=== PATIENT | male | born 1960 | race Caucasian/White ===

== ENCOUNTER 2017-07-16 12:36 | Inpatient (IN) | payer BC ==
[~2017-07-16] VITALS: Ht 175.3 cm; Wt 85.6 kg
[2017-07-16] VITALS (14 sets, daily range): BP systolic 82–104; BP diastolic 47–64
[2017-07-16] MEDS ORDERED: NS IV 1000 ML 1,000 ML IV SCH ×2 (13:46→14:00)
[2017-07-16] MEDS ORDERED: NS IV 1000 ML 1,000 ML IV PRN (13:46)
[2017-07-16] MEDS ORDERED: HYDR-3816 PO (13:48)
[2017-07-16] MEDS ORDERED: METF500T4 PO (13:48)
[2017-07-16] MEDS ORDERED: DONE5TAB30 PO (13:48)
[2017-07-16] MEDS ORDERED: GLIM4TAB PO (13:48)
[2017-07-16] MEDS ORDERED: CELE-63 PO (13:48)
[2017-07-16] MEDS ORDERED: NS IV 1000 ML 1,000 ML ONE (13:49)
[2017-07-16] MEDS ORDERED: ACETAMINOPHEN 500 MG TAB (TYLENOL) PO NR (13:51)
--- NOTE | 2017-07-16 14:01 | Diagnostic Imaging Report ---
INDICATION: Fever and shortness of air. Time of exam 1:52 PM No prior studies are available for comparison. There is marked diffuse airspace infiltrate throughout the left lung, suggestive of pneumonia. The right lung is clear. Right upper extremity PICC line appears to have the tip overlying the SVC. No effusion or pneumothorax is seen. IMPRESSION: Extensive left-sided infiltrate, suggestive of pneumonia. Dictated by: Dictated on workstation # [id number]
--- NOTE | 2017-07-16 14:19 | Physical Therapy Evaluation ---
PT Evaluation-General Medical Diagnosis Admission Date Jul 16, 2017 at 13:30 Medical Diagnosis: pneumonia/sepsis Onset Date: Jul 05, 2017 Therapy Diagnosis Therapy Diagnosis: impaired mobility, strength, endurance Referral Physician: Mitchel Reason for Referral: Evaluation/Treatment Medical History Pertinent Medical History: DM, HTN Additional Medical History peripheral neuropathy Social History Home: Single Level Current Living Status: Spouse Entry Into Home: Stairs With Railing PT Steps Into Home: 3 Patient states he lives with his and 2 daughters, steps have one handrail. Prior/Core FIM Prior Level of Function Functional [place] Measure 0=Not Assessed/NA 4=Minimal Assistance 1=Total Assistance 5=Supervision or Setup 2=Maximal Assistance 6=Modified [place] 3=Moderate Assistance 7=Complete [place] Bed Mobility: 7 Transfers (B,C,W/C) (FIM): 7 Gait: 7 PT Evaluation-Current Subjective Patient in van at entrance pre tx, will be transferred to wheelchair and taken to rehab. Patient has no complaints of pain. Pt/Family Goals "im pretty weak and I need to get stronger" Objective Patient Orientation: Person ROM/Strength ROM Lower Extremities WNL Strenght Lower Extremities left lower extremity (hip flexion 3/5, knee flexion 4/5, knee extension 4-/5, dorsiflexion 4/5), right lower extremity (hip flexion 3/5, knee flexion 4/5, knee extension 4-/5, dorsiflexion 4/5) Neuromuscular (Tone, Coordination, Reflexes) NT Sensory Vision: Wears Glasses Hearing: Impaired Sensation Right Lower Extremit: Intact Sensation Left Lower Extremity: Intact Sensation Lower Extremities Patient states he has occasional numbness and tingling in his feet, not at this moment Transfers Functional [place] Measure 0=Not Assessed/NA 4=Minimal Assistance 1=Total Assistance 5=Supervision or Setup 2=Maximal Assistance 6=Modified [place] 3=Moderate Assistance 7=Complete IndependenceIRFPAI Quality Coding Scale 6 Independent with activity with or without an assistive device 5 Patient requires set up or clean up by helper. Patient completes activity by themselves 4 Supervision or touching assist (CGA). Ferney provide cues , steadying assist 3 The helper provides less than half the effort to complete the activity 2 The helper provides more than half the effort to complete the activity 1 Dependent. The helper does all the effort to complete an activity 7 Patient refused to complete or attempt activity 9 The patient did not perform the activity before the current illness or injury 88 Not attempted due to Medical conditions or safety concerns Transfers (B, C, W/C) (FIM): 4 Scootin Rollin Roll Left to Right (QC): 4 Supine to/from Sit: 5 Sit to/from Stand: 3 bed t/f WC(FIM only if WC use): 4 Sit to Lying (QC): 4 Lying to Sitting/Side of Bed(Q: 4 Sit to Stand (QC): 4 Chair/Rez-hw-Defol Xfer(QC): 4 Car Transfer (QC): 3 Patient performs bed mobility with SBA, sit to stand with min assist from low surfaces, transfers with CGA, and car transfer with Ifeanyi Gait Does the Patient Walk?: Yes Mode of Locomotion: Walk Anticipated Mode of Locomotion: Walk Gait (FIM): 1 Walk 10 feet (QC): 4 Walk 50 ft with 2 Turns(QC): 88 Walk 150 ft (QC): 88 Walking 10ft/uneven surface-QC: 88 Distance: 10' Gait Level of Assist: 4 Gait Persons Needed: 1 Gait Assistive Device: FWW Comments/Gait Description Patient can ambulate 10' with a rolling walker with CGA, he had to stop due to fatigue and was a little SOB. SOB resolved after a short sitting rest. Wheelchair Training Wheelchair (FIM): 1 Distance: 50' Wheelchair Level of Assist: 2 Wheel 50 ft with 2 turns (QC): 2 Wheel 150 ft (QC): 88 Type of Wheelchair: Manual Patient is dependent for wheelchair mobility due to poor endurance in arms. Stairs If not tested on admit;explain not attempted due to safety reasons, patient has weakness in both lower extremities and very poor endurance Balance Sitting Static: Normal Sitting Dynamic: Normal Standing Static: Fair Standing Dynamic: Fair Assessment/Needs Patient has poor endurance and general mobility. He gets SOB with activity. Radiology came to take a chest xray during treatment. The xray appeared to show a lot of consolidation in one of the lungs. He also had an elevated temp. Nursing states that he is now on hold and to stop therapies. Rehab Potential: Fair PT Short Term Goals Short Term Goals Time Frame: Jul 23, 2017 Transfers (B,C,W/C) (FIM): 4 (CGA) Gait (FIM): 2 Gait Distance Comment: 50' Gait Level of Assist: 4 Gait Assistive Device: FWW PT Group Home Goals Environmental Conservation Officer Goals PT Group Home Goals Time Frame: Aug 06, 2017 Transfers (B,C,W/C) (FIM): 5 Sit to Lying (QC): 4 Lying-Sitting on Side/Bed(QC): 4 Sit to Stand (QC): 4 Rollin Roll Left to Right (QC): 4 Chair/Heb-yp-Lgycx Xfer(QC): 4 Car Transfer (QC): 4 Gait (FIM): 5 Distance: 150' Walk 10 feet (QC): 4 Walk 10ft-Uneven Surface(QC): 4 Walk 50ft with 2 Turns (QC): 4 Walk 150 ft (QC): 4 Gait Level of Assist: 5 Gait Assistive Device: FWW Stairs (FIM): 2 # of Steps: 4 1 Step (curb) (QC): 4 4 Steps (QC): 4 12 Steps (QC): 4 Stairs Level Of Assist: 5 Picking up an Object (QC): 4 PT Plan Problem List Problem List: Activity Tolerance, Functional Strength, Safety, Balance, Gait, Transfer, Bed Mobility, ROM Treatment/Plan Treatment Plan: Continue Plan of Care Treatment Plan: Bed Mobility, Concurrent Therapy, Education, Functional Activity Dina, Functional Strength, Group Therapy, Gait, Safety, Therapeutic Exercise, Transfers Treatment Duration: Aug 06, 2017 Frequency: At least 5 of 7 days/Wk (IRF) Estimated Hrs Per Day: 1.5 hours per day Patient and/or Family Agrees t: Yes Safety Risks/Education Patient Education: Gait Training, Transfer Techniques, Correct Positioning, W/ C Management, Safety Issues Teaching Recipient: Patient Teaching Methods: Demonstration, Discussion Response to Teaching: Reinforcement Needed Discharge Recommendations Plan Patient will perform bed mobility and transfer training, balance and endurance training, functional strengthening, stair training, gait training, and education , to improve functional mobility and independence at home. Therapy D/C Recommendations: Home w/ Family Support Time/GCodes Time In: 1320 Time Out: 1350 Total Billed Treatment Time: 30 Total Billed Treatment 1 visit LEYDI 30' FERNANDEZ MIR PT Jul 16, 2017 14:19
[2017-07-16 14:32] LABS: BASOPHILS % (AUTO) 0 % (0-10); EOSINOPHILS % (AUTO) 0 % (0-10); HEMATOCRIT 29 % (40-54); HEMOGLOBIN 9.4 G/DL (13.3-17.7); LYMPHOCYTES # (AUTO) 4.4 X 10^3 (1.0-4.0); LYMPHOCYTES % (AUTO) 33 % (12-44); MEAN CORPUSCULAR HEMOGLOBIN 30 PG (25-34); MEAN CORPUSCULAR HGB CONC 33 G/DL (32-36); MEAN CORPUSCULAR VOLUME 91 FL (80-99); MEAN PLATELET VOLUME 10.4 FL (7.4-10.4); MONOCYTES % (AUTO) 7 % (0-12); NEUTROPHILS # (AUTO) 8.1 X 10^3 (1.8-7.8); NEUTROPHILS % (AUTO) 60 % (42-75); PLATELET COUNT 428 10^3/uL (130-400); RED BLOOD COUNT 3.16 10^6/uL (4.35-5.85); RED CELL DISTRIBUTION WIDTH 13.1 % (10.0-14.5); WHITE BLOOD COUNT 13.5 10^3/uL (4.3-11.0)
[2017-07-16] MEDS ORDERED: VIAGRA PO (14:34)
[2017-07-16] MEDS ORDERED: CALC1TAB29 PO (14:34)
[2017-07-16] MEDS ORDERED: MULT-1061 PO (14:34)
[2017-07-16] MEDS ORDERED: GUAI600T43 PO (14:34)
[2017-07-16] MEDS ORDERED: PSEU-137 PO (14:34)
[2017-07-16] MEDS ORDERED: POTA99TA21 PO (14:34)
[2017-07-16] MEDS ORDERED: VIT1CAPS9 PO (14:34)
[2017-07-16] MEDS ORDERED: LISI40TA PO (14:34)
[2017-07-16] MEDS ORDERED: CANA300T PO (14:34)
[2017-07-16] MEDS ORDERED: EMPA25TA PO (14:34)
[2017-07-16] MEDS ORDERED: ASPI-983 PO (14:34)
[2017-07-16] MEDS ORDERED: CETI10TA20 PO (14:34)
[2017-07-16] MEDS ORDERED: PIPERACILLIN SODIUM/TAZOBACTAM 4.5 GM in NS (IVPB) 100 ML IV NR (14:36)
[2017-07-16 14:48] LABS: INR 1.1 (0.8-1.4); PROTHROMBIN TIME PATIENT 14.6 SEC (12.2-14.7)
[2017-07-16 14:54] LABS: ALANINE AMINOTRANSFERASE 15 U/L (0-55); ALBUMIN 2.2 GM/DL (3.2-4.5); ALKALINE PHOSPHATASE 51 U/L (40-136); BILIRUBIN,TOTAL 0.4 MG/DL (0.1-1.0); BUN/CREATININE RATIO 28; CALCIUM 8.5 MG/DL (8.5-10.1); CARBON DIOXIDE 29 MMOL/L (21-32); CHLORIDE 98 MMOL/L (98-107); CREATININE SERUM 0.83 MG/DL (0.60-1.30); GFR ESTIMATED > 60; GLUCOSE 144 MG/DL (70-105); POTASSIUM 4.1 MMOL/L (3.6-5.0); SODIUM 133 MMOL/L (135-145); TOTAL PROTEIN 6.7 GM/DL (6.4-8.2)
--- NOTE | 2017-07-16 14:58 | ST Dysphagia Evaluation ---
Speech Evaluation-General Medical Diagnosis Pneumonia/Sepsis Onset Date: Jul 05, 2017 Therapy Diagnosis Therapy Diagnosis: Oropharyngeal Swallow WNL Referral Referring Physician: Dr. Christoph Grullon Reason for Referral: Evaluation/Treatment Clinical Bedside Swallowing Evaluation Medical History Pertinent Medical History: DM, HTN Current History The patient was recently admitted to [facility] following a diagnosis of pneumonia. The patient was intubated for an unknown length at an outside facility. Following extubation, the patient completed a video swallow evaluation on 07/13/17 and was initiated on a full liquid diet. Reviewed History: Yes Social History Current Living Status: Spouse Speech PLF/Current-Dysphagia Prior Level of Function The patient and patient's denied any signs/symptoms of aspiration with any consistency the patient currently consumes. Prior to intubation, the patient consumed a regular diet with thin liquids at home. Subjective The patient was sitting upright in bed upon entrance. The patient greeted the clinician and was agreeable to participation in the dysphagia evaluation. The patient's was at beside. The patient's stated the patient "did an X- ray that showed he could have liquids and everything was fine. We asked if he could have a different diet but they told us the people at rehab would want to complete their own evaluation." The patient denied any swallowing difficulties with the full liquid diet. Per patient, "I cough sometimes because I have pneumonia but not because of my food." Cognitive Status Patient Orientation: Person, Place, Time, Situation, Normal For Age Oral Motor Skills Dentition: Natural Current Food Consistancy: Full Liquids Ability to Follow Directions: Good Oral Expression Ability: No Impairment Voice Voice Phonatory-Based Quality: Weak Voice Pitch: Normal Voice Loudness: Mildly Soft/Quiet Face Facial Symmetry: Symmetrical Oral-Facial Assessment Oral-Facial Dentition: Normal Labial Seal Description: Normal Smile: Normal Lingual Protrusion: Normal Lingual ROM: Normal Lingual Strength: Normal Pharynx Velopharyngeal Move.: Normal Volitional Dry Swallow: Yes Voluntary Cough: Yes Dysphagia Evaluation Consistencies Presented: Regular, Thin Liquid, Pureed - No oral impairments were noted throughout the swallowing evaluation with any consistency tested. The patient demonstrated increased mastication time with solids, however, spontaneously provided himself a liquid wash to clear. - No pharyngeal impairments were noted throughout the evaluation. - No signs/symptoms of aspiration or laryngeal penetration were noted with any consistency tested. The patient's vocal quality remained clear. Dietary Recommendations: Regular Liquid Recommendations: Thin Swallowing Precautions: Alternate Liquids/Solids, Small Bites and Sips, Sitting 90 Degrees 30 Post Intake Dysphagia Evaluation Summary The patient demonstrated an oropharyngeal swallow function grossly within normal limits. Speech-Plan Treatment Plan Speech Therapy Treatment Plan: Discontinue ST Evaluation, only. Cognition assessment to follow. Frequency: Modified Program (IRF) Estimated Hrs Per Day: Other Rehab Potential: Fair Safety Risks/Education Teaching Recipient: Patient, Significant Other Teaching Methods: Discussion Response to Teaching: Verbalize Understanding Education Topics Provided: Results, Recommendations, Plan of Care, Swallowing Strategies Time Speech Therapy Time In: 14:30 Speech Therapy Time Out: 14:50 Total Billed Time: 20 Billed Treatment Time 1, MCKENZIE RICK Jul 16, 2017 14:58
[2017-07-16] MEDS ORDERED: NS IV 1000 ML 1,500 ML IV SCH (15:30)
[2017-07-16] MEDS ORDERED: INFLUENZA TRIvalent 2017-2018 0.5 ML/45 MCG SYR IM ONE (15:45)
--- NOTE | 2017-07-16 15:50 | Occ Therapy Progress Note ---
Therapy Progress Note Pt admitted to ARU this pm. Pt is currently on hold for therapy secondary to medical status. Will attempt to complete evaluation when medically appropriate. SUZANNE GONZALEZ OT Jul 16, 2017 15:50
--- NOTE | 2017-07-16 16:09 | Consultation-Hospitalist ---
HPI History of Present Illness: HPI/Chief Complaint Pt is a 56yoCM with a recent admission to [facility] for acute respiratory failure due to MSSA pneumonia. He was transferred here for inpatient rehab following his long course there. Upon arrival initial assessment was done and his vitals revealed temperature of 100.8, tachycardia of 140, with BP of 95/59. His nurse immediately consulted me for evaluation concerning sepsis. He reports that he is feeling okay but is short of breath when walking and feels weak. He did feel his heart was racing but denied any chest pain. He has had a cough since this all started. Review his documentation from revealed he was intubated and then was able to be extubated and as soon as antibiotics were narrowed he worsened and necessitated reintubation. He told me they were never able to figure out why he worsened. at bedside said they had lots of problems with his blood pressure at [facility] as well. She states he was on blood pressure medicine prior to this illness but only took it around 3x/week to keep his BP within normal limits. Source: patient, family Exam Limitations: no limitations Date Seen 07/16/17 Attending Physician Christoph Grullon MD PCP Ovi Mcrae MD Referring Physician Date of Admission Jul 16, 2017 at 1:30 pm Home Medications & Allergies Home Medications Reviewed patient Home Medication Reconciliation performed by pharmacy medication reconciliations oncology technician and/or nursing. Patients Allergies have been reviewed. Allergies Allergies Coded Allergies No Known Allergies (Verified Allergy, Unknown, 07/16/17) Past Ijgbkqw-Exlsql-Rzedwt Hx Past Med/Social Hx: Reviewed Nursing Past Med/Soc Hx, Reviewed and Corrections made Patient Social History Marrital Status: Smoking Status: Former Smoker (quit in 1995) Type Used: Cigarettes Recent Foreign Travel: No Contact w/other who traveled: No Past Medical History Respiratory: COPD Cardiac: Hypertension Neurological: Dementia Endocrine: Diabetes, Non-Insulin dep Family History Reviewed Nursing Family Hx No Pertinent Family Hx Review of Systems Constitutional: No chills, No fever EENTM: No blurred vision, No double vision, No nose congestion, No throat pain Respiratory: see HPI, dyspnea on exertion Cardiovascular: see HPI, No chest pain, No edema, palpitations Gastrointestinal: No abdominal pain, No constipation, No diarrhea, No nausea, No vomiting Genitourinary: No dysuria, No frequency Musculoskeletal: No joint pain, No muscle pain, muscle weakness Skin: No lesions, No rash Psychiatric/Neurological: Denies Emotional Problems, Denies Headache, Denies Numbness, Denies Tingling All Other Systems Reviewed Negative Unless Noted: Yes (Negative excepted noted.) Physical Exam Physical Exam Vital Signs Vital Signs - First Documented 07/16/17 07/16/17 13:30 15:03 Temp 100.8 Pulse 140 Resp 20 B/P (MAP) 95/59 Pulse Ox 90 O2 Delivery Room Air O2 Flow Rate 2.00 Capillary Refill : General Appearance: No Apparent Distress, WD/WN HEENT: PERRL/EOMI, Moist Mucous Membranes, No Scleral Icterus (L), No Scleral Icterus (R) Neck: Normal Inspection, Supple, No JVD, No Thyromegaly Respiratory: No Respiratory Distress, Crackles, Decreased Breath Sounds (left) Cardiovascular: Regular Rate, Rhythm, No Murmur Gastrointestinal: Normal Bowel Sounds, Non Tender, Soft Extremity: Normal Capillary Refill, No Calf Tenderness, No Pedal Edema Neurologic/Psychiatric: Alert, Oriented x3, No Motor/Sensory Deficits, Normal Mood/Affect Skin: Normal Color, Warm/Dry Results Results/Procedures Labs Laboratory Tests 07/16/17 14:02 Patient resulted labs reviewed. Imaging: Reviewed Imaging Films Imaging Date of Exam: 07/16/17 CHEST 1 VIEW, AP/PA ONLY INDICATION: Fever and shortness of air. Time of exam 1:52 PM No prior studies are available for comparison. There is marked diffuse airspace infiltrate throughout the left lung, suggestive of pneumonia. The right lung is clear. Right upper extremity PICC line appears to have the tip overlying the SVC. No effusion or pneumothorax is seen. IMPRESSION: Extensive left-sided infiltrate, suggestive of pneumonia. Assessment/Plan Assessment and Plan Assess & Plan/Chief Complaint Severe Sepsis Critical Care Critical Care: Critically Ill Patient Diagnosis/Problems Diagnosis/Problems (1) Severe sepsis Status: Acute Assessment & Plan: Febrile and tachycardiac on arrival Septic workup initiated WBC 13.5 Lactic acid normal CXR shows extensive left sided pneumonia Bolused 1L with improvement in heart rate to 120s but BP went to 82/54 Met severe sepsis criteria at that time and 30cc/kg bolus started Blood cultures obtained Zosyn and Vanc ordered- Aaliyah hung at 1600 Discussed with primary- Dr Grullon and recommended converting to acute side and placing in ICU for hypotension and pontential need for pressors Bed available at this facility so social work administrator contact [facility] regarding transfer back I spoke with Dr Blevins who accepts patient in transfer If blood pressures do not improve may need central line for vasopressor therapy (2) Pneumonia Assessment & Plan: Reviewed notes from [facility]- had ~10day hospital stay requiring intubation for respiratory support secondary to MSSA pneumonia and severe sepsis MSSA in sputum at OSH also was CMV + on BAL Placed on droplet precaution Continue abx as above Qualifiers: Pneumonia type: due to methicillin-sensitive Staphylococcus aureus (MSSA) Laterality: left Lung location: unspecified part of lung Qualified Codes: J15.211 - Pneumonia due to methicillin susceptible Staphylococcus aureus (3) HTN (hypertension) Status: Chronic Assessment & Plan: Continue medications prior to arrival Review of notes shows BP at in the 130s though this was a few days ago Spoke with Dr Blevins and BP 110/68 just before discharge Qualifiers: Hypertension type: essential hypertension Qualified Codes: I10 - Essential (primary) hypertension (4) Non-insulin dependent type 2 diabetes mellitus Assessment & Plan: Normally on oral agents but on SSI at BS within goal currently Clinical Quality Measures DVT/VTE Risk/Contraindication: Risk Factor Score Per Nursin RFS Level Per Nursing on Admit: 4+=Very High Sepsis: Within 3hrs of presentation: Admin fluids, Admin ABX, Blood cultures prior to ABX's, Lactate level Copy Copies To 1: OVI MCRAE MD, KATELYN M MD Jul 16, 2017 4:09 pm
[2017-07-16] MEDS ORDERED: VANCOMYCIN INJECTION 1,750 MG in NS IV 500 ML 500 ML IV NR (17:00)
--- NOTE | 2017-07-16 19:01 | HISTORY AND PHYSICAL ---
DATE OF SERVICE: 07/16/2017 ADMISSION HISTORY AND PHYSICAL CHIEF COMPLAINT: Weakness. HISTORY OF PRESENT ILLNESS: The patient is a 56-year-old male who developed bilateral pneumonia with associated sepsis, which requiring transfer from [facility] to [facility] for treatment with IV nafcillin, intubation and ventilation support. The patient was extubated and referred to inpatient rehabilitation for ongoing therapies and care prior to a discharge home. nurse practitioner contacted this physician on 07/15 saying all was good for transfer. 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 The patient currently requires assistance for his ADLs and mobility skills. Cognitively, he is intact. He is min assist for ambulation with a walker for short distances. He is on O2 by nasal cannula. He is mod assist for transfers. He was transferred down here by his in a private car. PAST MEDICAL HISTORY: , bhc-rqyzoay-svlrqqrve diabetes mellitus, COPD. He has remote history of tobaccoism. PAST SURGICAL HISTORY: Noncontributory. ALLERGIES: No known medication allergies. FAMILY HISTORY: Noncontributory. SOCIAL HISTORY: . Quit tobacco in 1995, was independent, working as per above. REVIEW OF SYSTEMS: A 10-point review of systems is significant for fever, rapid heart rate, low blood pressure, shortness of breath. MEDICATIONS: Lovenox 40 mg subcu daily, NovoLog insulin sliding scale and Humulin N 20 units subcu b.i.d., nafcillin 2 g IV piggyback q. 4 hours for 20 days, Ditropan 5 mg p.o. daily, MiraLax 17 g p.o. b.i.d., Risperdal 1 mg rapid dissolve tablet at bedtime, ASA 81 mg p.o. daily, calcium carbonate with vitamin D3 one tablet p.o. daily, Zyrtec 10 mg p.o. daily, Aricept 5 mg p.o. at bedtime, multivitamins with minerals one tablet p.o. daily, Ocuvite one tablet p.o. daily. PHYSICAL EXAMINATION: GENERAL: Significant for a male, appropriate, lying in bed, in no acute distress. VITAL SIGNS: Blood pressure , pulse 114, temperature 100.8. HEENT: Vision, speech and hearing are grossly intact. No oral lesion is noted. NECK: Supple without mass. HEART: Rapid rhythm. LUNGS: Decreased breath sounds at left base. ABDOMEN: Soft, nontender. Bowel sounds present. EXTREMITIES: No leg edema. No calf tenderness. MUSCULOSKELETAL: The patient has functional active range of motion in all four extremities. NEUROLOGIC: Cognition appears functional. Swallow tested by speech therapy at bedside today is functional. His hearing is mildly impaired. He wears glasses. Strength, the hip flexions are 3/5, knee flexion 4/5, knee extension 1-/5, dorsiflexion 4/5. He has fair plus good minus strength in both upper limbs. IMPRESSION: 1. General debilitation secondary to pneumonia/sepsis, on IV antibiotics. 2. Persistent fever associated with tachycardia and hypotension. 3. Diabetes mellitus. PLAN: The patient will be seen by Dr. Carrasco, the hospitalist currently on diversion and there is no beauty culturist available at this facility at this time. She recommended transfer to an acute medical facility that has available medical beds. was contacted for transfer back to that facility for ongoing care and therapies and they have accepted and we are waiting for a bed. I have signed for ambulance for the patient to be transported. He may certainly be reassessed for rehabilitation once these issues have been more fully addressed. The patient did not have a full therapy evaluation with staff due to these issues and the gravity of the stay. DISCHARGE INSTRUCTIONS: The patient is being transferred directly back by ambulance back to [facility] to a medical floor for ongoing treatment. DISCHARGE MEDICATIONS: Same as above. DISCHARGE DIAGNOSES: 1. Rehabilitation of general debilitation secondary to severe sepsis with bilateral pneumonia under treatment. 2. Diabetes mellitus. Job ID: [id number] DocumentID: [id number] Dictated Date: 07/16/2017 17:48:56 Lathe Set Up Person Date: 07/16/2017 19:00:36 Dictated By: COLUMBA TRIPP MD
[2017-07-16] MEDS ORDERED: PIPERACILLIN SODIUM/TAZOBACTAM 4.5 GM in NS (IVPB) 100 ML IV SCH (22:00)
[2017-07-17] MEDS ORDERED: VANCOMYCIN 1250 MG/NS 250 ML IVPB IV SCH ×2 (05:00)
[2017-07-18] MEDS ORDERED: TROUGH ORDER-PHARMACY XX ONE (04:00)
== END 2017-07-16 19:30 | disposition short-term general hospital (02) | DRG 871 ==
PROVIDERS: ADMIT Physical Medicine & Rehabilitation; ATTEND Physical Medicine & Rehabilitation
DX: A41.9 Sepsis, unspecified organism (principal); J15.211 Pneumonia due to Methicillin susceptible Staphylococcus aureus; J44.9 Chronic obstructive pulmonary disease, unspecified; I10 Essential (primary) hypertension; E11.9 Type 2 diabetes mellitus without complications; F03.90 Unspecified dementia, unspecified severity, without behavioral disturbance, psychotic disturbance, mood disturbance, and anxiety; Z79.4 Long term (current) use of insulin
CPT/HCPCS: 36415; 71045; 80053; 83605; 84484; 85025; 85610; 85730; 87040; 87070; 87077; 87186; 87205

== ENCOUNTER 2017-07-26 15:42 | Inpatient (IN) | payer BC ==
[~2017-07-26] VITALS: Ht 170.2 cm; Wt 79.9 kg
[~2017-07-26 15:42] MED LIST: ASPI-983 PO; CALC1TAB29 PO; CANA300T PO; CELE-63 PO; CETI10TA20 PO; DONE5TAB30 PO; EMPA25TA PO; GLIM4TAB PO; GUAI600T43 PO; HYDR-3816 PO; LISI40TA PO; METF500T4 PO; MULT-1061 PO; POTA99TA21 PO; PSEU-137 PO; VIAGRA PO; VIT1CAPS9 PO
[2017-07-26 20:35] VITALS: BP 98/61
[2017-07-26 22:00] VITALS: BP 107/72
[2017-07-26] MEDS: risperiDONE 1 MG (RisperDAL) TAB PO SCH (22:42)
[2017-07-26] MEDS: inSUlin NPH (NovoLIN N) 1 UNIT/0.01 ML (CHARGE PER UNIT) SQ SCH (22:42)
[2017-07-26] MEDS: inSUlin (REGULAR) HUMAN 1 UNIT/0.01 ML (CHARGE PER UNIT) SC SCH (22:42)
[2017-07-26] MEDS: PANTOPRAZOLE 40 MG (PROTONIX) TAB PO SCH (22:43)
[2017-07-26] MEDS: TOLTERODINE LA 4 MG (DETROL) CAP PO SCH (22:43)
[2017-07-26] MEDS: DONEPEZIL 5 MG (ARICEPT) TAB PO SCH (22:44)
[2017-07-26] MEDS: POLYETHYLENE GLYCOL 17 GM (MIRALAX) PACK PO SCH (23:08)
--- NOTE | 2017-07-26 23:44 | HISTORY AND PHYSICAL ---
DATE OF SERVICE: 07/26/2017 CHIEF COMPLAINT: Generalized weakness. HISTORY OF PRESENT ILLNESS: The patient is a 57-year-old male who was admitted to [facility] last month due to sepsis associated with hypotension, pneumonia with Staphylococcus aureus bacteremia. The patient was placed on nafcillin medically stabilized and referred to inpatient rehabilitation unit at [facility] on 07/16/2017 for ongoing therapies with the approval of his commercial insurance. The patient, however, was tachycardic with a low grade fever and somewhat hypotensive. The patient was transferred back to [facility] for further management that same day. His antibiotics have now been changed. He did have some melena while there and an EGD revealed duodenal ulcer, this was treated. The patient was placed on proton pump inhibitor and is now referred back for ongoing therapies. Currently, requires assistance for his ADLs, mobility skills. He had been independent prior to this. He lives in [place] with his spouse. PAST MEDICAL HISTORY: Essentially as per above. PAST SURGICAL HISTORY: Noncontributory. ALLERGIES: Ibuprofen-intolerance. FAMILY HISTORY: Noncontributory. SOCIAL HISTORY: As per above. REVIEW OF SYSTEMS: Significant for generalized weakness. MEDICATIONS: Invanz 1 gram q.24 hours for 70 days. IV piggyback, Protonix 40 mg p.o. b.i.d., [place] with vitamin D one tablet p.o. daily, Zyrtec 10 mg p.o. daily, calcium carbonate, Aricept 5 mg p.o. at bedtime, insulin FlexPen sliding scale five times daily, NPH Humulin 20 units subcu b.i.d., multivitamins with minerals one tablet p.o. daily due to Ditropan XL 5 mg p.o. daily, MiraLax 17 grams p.o. b.i.d., Risperdal 1 tablet p.o. at bedtime, Ocuvite one tablet p.o. daily. The patient's aspirin is currently on hold due to the GI bleed. PHYSICAL EXAMINATION: GENERAL: Significant for male appearing his stated age, alert and oriented, sitting in chair in no acute distress. VITAL SIGNS: BP 96/68 Pulse 113 RR 20. He is afebrile. He is off of supplemental O2. HEENT: Vision, speech, hearing grossly intact. No oral lesion is noted. NECK: Supple without mass. CARDIOVASCULAR: Regular rate and rhythm. RESPIRATORY: Chest is clear. ABDOMEN: Soft, nontender, bowel sounds present. EXTREMITIES: No edema, no calf tenderness. MUSCULOSKELETAL: The patient has functional active range of motion in all 4 extremities. NEUROLOGIC: Cognition grossly intact. Sensation grossly intact to touch. Strength generalized weakness.Functional UE strength Strength 4-/5 Blower limbs IMPRESSION: 1. Critical illness myopathy. 2. Status post a bout of pneumonia associated with sepsis continuing on IV antibiotics. 3. Duodenal ulcer treated by GI with EGD at OSH on Protonix. 4. Diabetes mellitus, controlled with medication. 5. Malnutrition. 6. Anemia 7. Resting tachycardia most likely related to deconditioning 8. Hypotension-monitor PLAN: The patient will have a comprehensive program of inpatient rehabilitation with goal of maximizing level of functional independence prior to discharge home with spouse. The patient will have PT, OT 90 minutes per day each discipline, 5 days a week for 7 to 10 days. Please see post-admission physician evaluation for details of plan of care. Speech therapy, do cognitive assessment treat as indicated. Rehabilitation nursing assist with bowel, bladder, skin care, medication administration, pain management and long term care social worker with discharge planning, community reentry. We will ask Dr. Heath who follows out of town patient while on rehab unit. Routine admission labs. Follow up with [facility] infectious disease upon discharge from this facility.Monitor Bllod pressure and Pulse and do further workup as needed if doesnt normalize with good po intake and mobilization. Routine admission labs ESTIMATED LENGTH OF STAY: 7 to 10 days. PROGNOSIS: Rehab prognosis appears good for goal discharging home with spouse, modified independent to supervision for ADLs and mobility skills. DIET: Regular. CODE STATUS: Full code. Job ID: [id number] DocumentID: [id number] Dictated Date: 07/26/2017 20:49:09 Diesel Retrofit Designer Date: 07/26/2017 23:43:35 Dictated By: COLUMBA TRIPP MD [facility]
[2017-07-27 06:00] VITALS: BP 100/61
[2017-07-27] MEDS: inSUlin (REGULAR) HUMAN 1 UNIT/0.01 ML (CHARGE PER UNIT) SC SCH ×4 (06:06→20:35)
[2017-07-27] MEDS: MULTIVIT W/MINERALS TAB (THERAGRAN M) PO SCH (06:35)
[2017-07-27] MEDS: CALCIUM CARB + VIT D 600 MG (CALCARB + D) TAB PO SCH (06:35)
[2017-07-27 07:13] LABS: BASOPHILS % (AUTO) 0 % (0-10); EOSINOPHILS # (AUTO) 0.2 10^3/uL (0.0-0.3); EOSINOPHILS % (AUTO) 1 % (0-10); HEMATOCRIT 25 % (40-54); LYMPHOCYTES # (AUTO) 3.9 X 10^3 (1.0-4.0); LYMPHOCYTES % (AUTO) 32 % (12-44); MEAN CORPUSCULAR HEMOGLOBIN 30 PG (25-34); MEAN CORPUSCULAR HGB CONC 32 G/DL (32-36); MEAN CORPUSCULAR VOLUME 94 FL (80-99); MEAN PLATELET VOLUME 9.1 FL (7.4-10.4); MONOCYTES # (AUTO) 1.1 X 10^3 (0.0-1.0); MONOCYTES % (AUTO) 9 % (0-12); NEUTROPHILS # (AUTO) 6.9 X 10^3 (1.8-7.8); NEUTROPHILS % (AUTO) 57 % (42-75); PLATELET COUNT 436 10^3/uL (130-400); RED BLOOD COUNT 2.67 10^6/uL (4.35-5.85); RED CELL DISTRIBUTION WIDTH 14.1 % (10.0-14.5)
[2017-07-27 07:33] LABS: ALANINE AMINOTRANSFERASE 9 U/L (0-55); ALBUMIN 2.4 GM/DL (3.2-4.5); ALKALINE PHOSPHATASE 58 U/L (40-136); BILIRUBIN,TOTAL 0.3 MG/DL (0.1-1.0); BUN/CREATININE RATIO 14; CALCIUM 8.8 MG/DL (8.5-10.1); CARBON DIOXIDE 27 MMOL/L (21-32); CHLORIDE 102 MMOL/L (98-107); GFR ESTIMATED > 60; GLUCOSE 148 MG/DL (70-105); POTASSIUM 4.1 MMOL/L (3.6-5.0); SODIUM 138 MMOL/L (135-145); TOTAL PROTEIN 6.3 GM/DL (6.4-8.2)
--- NOTE | 2017-07-27 08:21 | ST Cognitive Linguistic Eval ---
Speech Evaluation-General Medical Diagnosis Sepsis, Hypotension, Pneumonia Therapy Diagnosis Therapy Diagnosis: Cognitive Linguistic Skills WNL Precautions Precautions/Isolations: Fall Prevention, Standard Precautions Referral Referring Physician: Dr. Christoph Grullon Reason for Referral: Evaluation/Treatment Cognitive Evaluation Medical History Pertinent Medical History: DM, HTN Current History The patient was recently readmitted following treatment for sepsis, hypotension , and pneumonia. Reviewed History: Yes Speech PLF-Current Status Prior Level of Function The patient denied prior challenges with speech, language or cognition. Per patient, he does wear hearing aids (which he has present and placed) and glasses (which are present). Subjective The patient was seated upright in bed upon entrance. The patient greeted the clinician and was agreeable to participation in the cognitive evaluation. Language Eval: Auditory Comprehends Simple Yes/No Ques: Functional Indent/Objects Multiple [place]: Functional Ident/Pics in Multiple [place]: Functional Follows 1-Step Commands: Functional Follows Complex Directions: Functional (Simple, two-step commands.) Follows General Conversations: Functional Language Eval: Verbal Language Completes Spontaneous Greeting: Functional Produces Auto, Serial Info: Functional Imitates Simple Words/Phrases: Functional Word Finding: Functional Requests Basic Needs: Functional States Basic Personal Info: Functional Expresses Complex Ideas: Functional Language Evaluation: Reading Comprehends Single Nouns: Functional Per patient, "I'm not a real good reader but I read." Language Evaluation: Writing Writes Personal Information: Moderate (The patient stated his hands are extremely weak from his illness. The patient is able to write his name (right handed) but stated his hand writing is "not the same.") Cognitive Patient Orientation The patient is independently oriented to self, location, month, year, and day of week. Objective Cognitive Domain Attention: WNL Memory: WNL Problem Solving: Functional Objective Impression The patient demonstrated cognitive linguistic skills within normal limits and appropriate for completion of ADL's. Communication/Social Cognition Comprehension: 6 Expression: 6 Social Interaction: 6 Problem Solvin Memory: 5 Speech Patient Assess Expression of Ideas/Wants: Expression (4) Understanding [place] Content: Understands (4) Brief Interview-Mental Status: Yes Repetition of Three Words: Three (3) Temporal Orientation: Year: Correct (3) Temporal Orientation: Month: Accurate within 5 days(2) Temporal Orientation: Day: Correct (1) Recall : Wear to say "Sock": Yes, no cue required (2) Recall : Color: Yes, after cueing (1) Recall : Bed: Yes,after cueing (1) Speech-Plan Treatment Plan Speech Therapy Treatment Plan: Discontinue ST Evaluation, only. Frequency: Modified Program (IRF) Estimated Hrs Per Day: Other Rehab Potential: Good Safety Risks/Education Teaching Recipient: Patient Teaching Methods: Discussion Response to Teaching: Verbalize Understanding Education Topics Provided: Results, Recommendations, Plan of Care Time Speech Therapy Time In: 07:57 Speech Therapy Time Out: 08:12 Total Billed Time: 15 Billed Treatment Time 1, MCKENZIE DEL ANGEL Jul 27, 2017 08:21
--- NOTE | 2017-07-27 08:40 | Consultation ---
History of Present Illness History of Present Illness Patient Consulted On(benny/time) 07/27/17 08:34 Time Seen by Provider: 08:35 History of Present Illness Patient came from [facility] area Patient has a history of sepsis, hypotension, pneumonia with staph aureus. Patient had an EGD showing a duodenal ulcer. Patient uses a walker to get around. Patient is weak and has debility Allergies and Home Medications Allergies Coded Allergies: ibuprofen (Verified Allergy, Unknown, 07/26/17) pt states "it causes extreme stomach pains" midazolam (Verified Allergy, Unknown, 07/26/17) pt states "it lowers my blood pressure extremely low" Home Medications Aspirin 81 Mg Tablet.dr, 81 MG PO DAILY, (Reported) Calcium Carbonate/Vitamin D3 1 Each Tablet, 1 TAB PO DAILY, (Reported) Cetirizine HCl 10 Mg Tablet, 10 MG PO DAILY, (Reported) Donepezil HCl 5 Mg Tablet, 5 MG PO HS, (Reported) Multivit-Min/FA/Lycopen/Lutein 1 Each Tablet, 1 TAB PO DAILY, (Reported) Vit C/Vit E/Lutein/Min/[place]-3 1 Each Capsule, 1 CAP PO DAILY, (Reported) Patient Home Medication List Home Medication List Reviewed: Yes Past Ftrjzyf-Jnyune-Fzpcsd Hx Patient Social History Alcohol Use: Denies Use Recreational Drug Use: No Smoking Status: Former Smoker Type Used: Cigarettes Recent Foreign Travel: No Recent Hopitalizations: Yes Seasonal Allergies Seasonal Allergies: Yes Surgeries History of Surgeries: Yes (X7 CLIPS TO REPAIR GI BLEED) Respiratory History of Respiratory Disorde: Yes (ARDS) Respiratory Disorders: Pneumonia, COPD Currently Using CPAP: No Currently Using BIPAP: No Cardiovascular History of Cardiac Disorders: Yes Cardiac Disorders: Hypertension Neurological History of Neurological Disord: Yes (MILD DEMENTIA ) Neurological Disorders: Dementia Reproductive System Sexually Transmitted Disease: No HIV/AIDS: No Genitourinary History of Genitourinary Disor: No Gastrointestinal History of Gastrointestinal Di: Yes Gastrointestinal Disorders: Gastrointestinal Bleed, Ulcer Musculoskeletal History of Musculoskeletal Dis: No Endocrine History of Endocrine Disorders: Yes Endocrine Disorders: Diabetes, Non-Insulin dep HEENT History of HEENT Disorders: No Cancer History of Cancer: No Psychosocial History of Psychiatric Problem: No Integumentary History of Skin or Integumenta: No Blood Transfusions History of Blood Disorders: No Adverse Reaction to a Blood Tr: No Family Medical History Significant Family History: No Pertinent Family Hx Review of Systems-General Constitutional: malaise, weakness EENTM: no symptoms reported Respiratory: no symptoms reported Cardiovascular: no symptoms reported Gastrointestinal: no symptoms reported Genitourinary: no symptoms reported Physical Exam-General Problems Physical Exam Vital Signs Vital Signs - First Documented Capillary Refill : General Appearance: WD/WN, no apparent distress Eyes: Bilateral Eye Normal Inspection HEENT: normal ENT inspection Neck: non-tender, full range of motion Respiratory: lungs clear, no respiratory distress, no accessory muscle use Cardiovascular: regular rate, rhythm, no murmur Gastrointestinal: non tender Assessment/Plan Assessment/Plan Admission Diagnosis/Plan Debility. Sepsis. Anemia. Pneumonia due to staph aureus on IV antibiotics Clinical Quality Measures DVT/VTE Risk/Contraindication: Risk Factor Score Per Nursin RFS Level Per Nursing on Admit: 2=Moderate AUDI LEIVA DO Jul 27, 2017 08:40
[2017-07-27 08:45] VITALS: BP 104/69
[2017-07-27] MEDS: LORATADINE (CLARITIN) 10 MG TAB PO SCH (08:54)
[2017-07-27] MEDS: PANTOPRAZOLE 40 MG (PROTONIX) TAB PO SCH ×2 (08:54→20:34)
[2017-07-27] MEDS: POLYETHYLENE GLYCOL 17 GM (MIRALAX) PACK PO SCH ×2 (08:55→20:34)
[2017-07-27] MEDS ORDERED: ERTAPENEM IV SCH (09:00)
[2017-07-27] MEDS ORDERED: NS IV SCH (09:00)
[2017-07-27] MEDS: inSUlin NPH (NovoLIN N) 1 UNIT/0.01 ML (CHARGE PER UNIT) SQ SCH ×2 (09:10→20:36)
--- NOTE | 2017-07-27 10:09 | Physical Therapy Evaluation ---
PT Evaluation-General Medical Diagnosis Admission Date Jul 26, 2017 at 20:41 Medical Diagnosis: Sepsis, Hypotension, Pneumonia Onset Date: Jul 23, 2017 Therapy Diagnosis Therapy Diagnosis: weakness; abn gait Height/Weight Height (Feet): 5 Height (Inches): 7.00 Weight (Pounds): 176 Weight (Ounces): 2.0 Precautions Precautions/Isolations: Fall Prevention, Standard Precautions Referral Physician: goivanni Reason for Referral: Evaluation/Treatment Medical History Pertinent Medical History: DM, Dementia (mild), HTN Current History The patient is a 57-year-old male who was admitted to [facility] last month due to sepsis associated with hypotension, pneumonia with Staphylococcus aureus bacteremia. The patient was placed on nafcillin medically stabilized and referred to inpatient rehabilitation unit at [facility] on 07/16/2017 for ongoing therapies with the approval of his commercial insurance. The patient, however, was tachycardic with a low grade fever and somewhat hypotensive. 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 PT Evaluation-Current Subjective Reports he does not have pain but that he fatigues quickly. Reports he has been using a walker due to weakness. Pain Numeric Pain Scale: 0-No Pain Location: No Pain Reported Objective Patient Orientation: Person, Place, Time, Situation Problem Solving: Fair ROM/Strength ROM Lower Extremities WFL Strenght Lower Extremities grossly 4-/5 with decreased functional activity [place]. Integumentary/Posture Integumentary refer to nursing notes. Bowel Incontinence: No Bladder Incontinence: No Posture normal and symmetrical Neuromuscular (Tone, Coordination, Reflexes) no noted functional deficits Sensory Vision: Wears Glasses Hand Dominance: Right Sensation Right Lower Extremit: Intact Sensation Left Lower Extremity: Intact Transfers Functional [place] Measure 0=Not Assessed/NA 4=Minimal Assistance 1=Total Assistance 5=Supervision or Setup 2=Maximal Assistance 6=Modified [place] 3=Moderate Assistance 7=Complete IndependenceIRFPAI Quality Coding Scale 6 Independent with activity with or without an assistive device 5 Patient requires set up or clean up by helper. Patient completes activity by themselves 4 Supervision or touching assist (CGA). [place] provide cues , steadying assist 3 The helper provides less than half the effort to complete the activity 2 The helper provides more than half the effort to complete the activity 1 Dependent. The helper does all the effort to complete an activity 7 Patient refused to complete or attempt activity 9 The patient did not perform the activity before the current illness or injury 88 Not attempted due to Medical conditions or safety concerns Transfers (B, C, W/C) (FIM): 4 Roll Left to Right (QC): 4 Sit to/from Stand: 4 Sit to Lying (QC): 4 Lying to Sitting/Side of Bed(Q: 4 Sit to Stand (QC): 4 Chair/Eiu-je-Qtiof Xfer(QC): 4 Car Transfer (QC): 4 Gait Does the Patient Walk?: Yes Mode of Locomotion: Walk Anticipated Mode of Locomotion: Walk Gait (FIM): 4 Distance (FIM): 3=150 ft Walk 10 feet (QC): 4 Walk 50 ft with 2 Turns(QC): 4 Walk 150 ft (QC): 4 Walking 10ft/uneven surface-QC: 4 Gait Assistive Device: FWW Comments/Gait Description CGA with all gait for safety purposes. Normal gait pattern but seems slightly unsteady and especially as he fatigues. Wheelchair Training Does the Pt Use a Wheelchair?: No Stairs Stairs (FIM): 2 #of Steps: 4 Level of Assist: 4 (use of B handrails and 1 step at a time.) 1 Step (curb) (QC): 4 4 Steps (QC): 4 12 Steps (QC): 88 Balance Sitting Static: Good Sitting Dynamic: Good Standing Static: Fair Standing Dynamic: Fair Picking up an Object (QC): 3 Treatment Gait training with skilled cues on safety; walker adjustment. Stood at sink to wash his hands and required min-CGA for balanc.e Assessment/Needs Pt presents post lengthy acute hospital stay with diagnosis of pneumonia with sepsis and post GI bleed. He has significant weakness and limited functional activity tolerance that impairs his functional balance. He will benefit from skilled PT intervention to address these needs and progress his mobility to allow him to return home with family. Rehab Potential: Good PT Short Term Goals Short Term Goals Time Frame: Jul 30, 2017 Transfers (B,C,W/C) (FIM): 6 Gait (FIM): 5 Distance (FIM): 3=150 ft Gait Assistive Device: Cane Single Point PT Snf Goals Snf Goals PT Subcontract Administrator Goals Time Frame: Aug 06, 2017 Transfers (B,C,W/C) (FIM): 7 Sit to Lying (QC): 6 Lying-Sitting on Side/Bed(QC): 6 Sit to Stand (QC): 6 Roll Left to Right (QC): 6 Chair/Erb-no-Amoze Xfer(QC): 6 Car Transfer (QC): 6 Does the Patient Walk: Yes Gait (FIM): 6 Gait distance (FIM): 3=150 ft Walk 10 feet (QC): 6 Walk 10ft-Uneven Surface(QC): 6 Walk 50ft with 2 Turns (QC): 6 Walk 150 ft (QC): 6 Gait Assistive Device: Cane Single Point Does the Pt use WC or Scooter?: No Stairs (FIM): 6 # of Steps: 12 1 Step (curb) (QC): 6 4 Steps (QC): 6 12 Steps (QC): 6 Picking up an Object (QC): 5 PT Plan Problem List Problem List: Activity Tolerance, Functional Strength, Safety, Balance, Gait, Transfer, Bed Mobility Treatment/Plan Treatment Plan: Continue Plan of Care Treatment Plan: Bed Mobility, Education, Functional Activity Dina, Functional Strength, Group Therapy, Gait, Safety, Therapeutic Exercise, Transfers Treatment Duration: Aug 06, 2017 Frequency: Modified Program (IRF) Estimated Hrs Per Day: 1.5 hours per day Patient and/or Family Agrees t: Yes Safety Risks/Education Patient Education: Transfer Techniques, Safety Issues Teaching Recipient: Patient Teaching Methods: Discussion Response to Teaching: Reinforcement Needed Time/GCodes Time In: 830 Time Out: 910 Total Billed Treatment Time: 40 Total Billed Treatment visit EVL 25 GT 15 MARCELO MENA PT Jul 27, 2017 10:09
--- NOTE | 2017-07-27 11:36 | Physical Therapy Daily Note ---
PT Daily Note-Current Subjective Agrees to PT. Reports he is tired from earlier activities. Mental Status Patient Orientation: Person, Place, Time, Situation Transfers Functional [place] Measure 0=Not Assessed/NA 4=Minimal Assistance 1=Total Assistance 5=Supervision or Setup 2=Maximal Assistance 6=Modified [place] 3=Moderate Assistance 7=Complete IndependenceIRFPAI Quality Coding Scale 6 Independent with activity with or without an assistive device 5 Patient requires set up or clean up by helper. Patient completes activity by themselves 4 Supervision or touching assist (CGA). [place] provide cues , steadying assist 3 The helper provides less than half the effort to complete the activity 2 The helper provides more than half the effort to complete the activity 1 Dependent. The helper does all the effort to complete an activity 7 Patient refused to complete or attempt activity 9 The patient did not perform the activity before the current illness or injury 88 Not attempted due to Medical conditions or safety concerns Transfers (B, C, W/C) (FIM): 4 Gait Training Does the Patient Walk?: Yes Gait (FIM): 4 Distance (FIM): 3=150 ft (x reps) Stair Training Stair Training: Handrails/: 2 handrails Stairs (FIM): 2 4 Steps (QC): 4 Stairs: Pattern: Step to Assessment Fatigues quickly. Slight SoA with activity. PT Short Term Goals Short Term Goals Time Frame: Jul 30, 2017 Transfers (B,C,W/C) (FIM): 6 Gait (FIM): 5 Distance (FIM): 3=150 ft Gait Assistive Device: Cane Single Point PT Correction Goals Correction Goals PT [place] Parent Goals Time Frame: Aug 06, 2017 Transfers (B,C,W/C) (FIM): 7 Sit to Lying (QC): 6 Lying-Sitting on Side/Bed(QC): 6 Sit to Stand (QC): 6 Roll Left to Right (QC): 6 Chair/Bdl-ca-Jekqt Xfer(QC): 6 Car Transfer (QC): 6 Does the Patient Walk: Yes Gait (FIM): 6 Gait distance (FIM): 3=150 ft Walk 10 feet (QC): 6 Walk 10ft-Uneven Surface(QC): 6 Walk 50ft with 2 Turns (QC): 6 Walk 150 ft (QC): 6 Gait Assistive Device: Cane Single Point Does the Pt use WC or Scooter?: No Stairs (FIM): 6 # of Steps: 12 1 Step (curb) (QC): 6 4 Steps (QC): 6 12 Steps (QC): 6 Picking up an Object (QC): 5 PT Plan Problem List Problem List: Activity Tolerance, Functional Strength, Safety Treatment/Plan Treatment Plan: Continue Plan of Care Treatment Plan: Bed Mobility, Education, Functional Activity Dina, Functional Strength, Group Therapy, Gait, Safety, Therapeutic Exercise, Transfers Treatment Duration: Aug 06, 2017 Frequency: Modified Program (IRF) Estimated Hrs Per Day: 1.5 hours per day Patient and/or Family Agrees t: Yes Safety Risks/Education Educated pt and regarding 3 hours, schedule and general format of ARU, verbalized understanding. Time/GCodes Time In: 1100 Time Out: 1124 Total Billed Treatment Time: 24 Total Billed Treatment visit GT 24 MARCELO MENA PT Jul 27, 2017 11:36
--- NOTE | 2017-07-27 11:51 | Occupational Therapy Eval ---
OT Evaluation-General/PLF Medical Diagnosis Admission Date Jul 26, 2017 at 20:41 Medical Diagnosis: Sepsis, Hypotension, Pneumonia Onset Date: Jul 23, 2017 Therapy Diagnosis Therapy Diagnosis: Weakness, Decreased ADL skills Height/Weight Height (Feet): 5 Height (Inches): 7.00 Weight (Pounds): 176 Weight (Ounces): 2.0 Precautions Precautions/Isolations: Fall Prevention, Standard Precautions Safety Interventions: None Weight Bear Status Weight Bearing Restriction: Weight Bearing/Tolerated Referral Physician: giovanni Referral Reason: Activity Tolerance, Self Care, Evaluation/Treatment, Strengthening/ROM Medical History Pertinent Medical History: DM, Dementia (mild), HTN Additional Medical History Malnutrition, duodenal ulcer, hypotension Current History Pt. contracted the flu and eventually became septic. Reviewed History: Yes Social History Home: Single Level Current Living Status: Other Family (, his children and grandchildren) Entry Into Home: Stairs With Railing Steps Into Home: 3 ADL-Prior Level of Function ADL PLOF Comments Pt. was independent with daily skills prior to becoming ill. DME/Equipment: Tub/Shower DME/Equipment Comments Pt. has a cane. 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 reports that he is tired this a.m. Does not report pain. Appearance Pt. in bed. Agrees to work with OT. Mental Status/Objective Patient Orientation: Person, Place Attachments: IV Current Glasses/Contacts: Yes Hearing Aids: Yes Hand Dominance: Right Upper Extremity ROM WFL bilateral UE Upper Extremity Strength Pt. demonstrates 3/5 bilateral UE strength overall. ADL-Treatment Functional [place] Measure 0=Not Assessed/NA 4=Minimal Assistance 1=Total Assistance 5=Supervision or Setup 2=Maximal Assistance 6=Modified [place] 3=Moderate Assistance 7=Complete IndependenceIRFPAI Quality Coding Scale 6 Independent with activity with or without an assistive device 5 Patient requires set up or clean up by helper. Patient completes activity by themselves 4 Supervision or touching assist (CGA). [place] provide cues , steadying assist 3 The helper provides less than half the effort to complete the activity 2 The helper provides more than half the effort to complete the activity 1 Dependent. The helper does all the effort to complete an activity 7 Patient refused to complete or attempt activity 9 The patient did not perform the activity before the current illness or injury 88 Not attempted due to Medical conditions or safety concerns Bathing (FIM): 4 (CGA in stance.) Shower/Bathe Self (QC): 4 Upper Body Dressing (FIM): 5 Upper Body Dressing (QC): 4 Lower Body Dressing (FIM): 4 (CGA in stance to pull up pants and underwear.) Lower Body Dressing (QC): 4 On/Off Footwear (QC): 4 Transfers (B, C, W/C) (FIM): 4 (CGA to ambulate with walker.) Shower Transfer (FIM): 4 Other Treatments Pt. fatigued throughout treatment. Required several brief rest breaks. Pt. requested to lay back down in bed after shower. Pt given theraband and therapy sponge to work on UE strength. Pt. completed 2 exercises x 10 reps each with red theraband, and 20 squeezes with bilateral hands using therapy sponge. Pt required rest breaks in between exercises. Education OT Patient Education: Correct positioning, Exercise program, Home exercise program, Modified ADL techniques, Progress toward Goal/Update tx plan, Purpose of tx/functional activities, Reviewed precautions, Rehab process, Transfer techniques Teaching Recipient: Patient Teaching Methods: Demonstration, Discussion Response to Teaching: Verbalize Understanding, Return Demonstration OT Short Term Goals Short Term Goals Time Frame: Aug 03, 2017 Eating(FIM): 6 Grooming(FIM): 5 Bathing(FIM): 5 Upper Body Dressing(FIM): 5 Lower Body Dressing(FIM): 5 Toileting(FIM): 5 Transfers (B,C,W/C) (FIM): 5 Toilet/Commode Transfer(FIM): 5 Shower Transfer(FIM): 5 Additional Short Term Goals: 1-Demonstrate ADL Tasks, 2-Verbalize Understanding , 3-ImproveStrength/Dina 1=Demonstrate adherence to instructed precautions during ADL tasks. 2=Patient will verbalize/demonstrate understanding of assistive devices/ modifications for ADL. 3=Patient will improve strength/tolerance for activity to enable patient to perform ADL's. OT Woodworking Belt Sander Goals Woodworking Belt Sander Goals Time Frame: Aug 10, 2017 Eating (FIM): 6 Eating (QC): 6 Groomin Oral Hygiene (QC): 6 Bathing(FIM): 5 Shower/Bathe Self (QC): 4 Upper Body Dressing(FIM): 6 Upper Body Dressing (QC): 6 Lower Body Dressing(FIM): 6 Lower Body Dressing (QC): 6 On/Off Footwear (QC): 6 Toileting(FIM): 6 Toileting Hygiene (QC): 6 Transfers (B,C,W/C) (FIM): 6 Toilet/Commode Transfer(FIM): 6 Toilet/Commode Transfer (QC): 6 Shower Transfer(FIM): 5 Additional Goals: 1-Demonstrate ADL Tasks, 2-Verbalize Understanding, 3- ImproveStrength/Dina 1=Demonstrate adherence to instructed precautions during ADL tasks. 2=Patient will verbalize/demonstrate understanding of assistive devices/ modifications for ADL. 3=Patient will improve strength/tolerance for activity to enable patient to perform ADL's. OT Education/Plan Problem List/Assessment Assessment: Decreased Activ Tolerance, Decreased UE Strength, Dependent Transfers, Impaired Funct Balance, Impaired I ADL's, Impaired Self-Care Skills Discharge Recommendations Plan/Recommendations: Continue POC Therapy D/C Recommendations: Home w/ Family Support, Occupational Therapy Home Care Equpiment Recommendations-D/C: Extended Bath Bench Treatment Plan/Plan of Care Treatment,Training & Education: Yes Patient would benefit from OT for education, treatment and training to promote independence in ADL's, mobility, safety and/or upper extremity function for ADL' s. Plan of Care: ADL Retraining, Functional Mobility Treatment Duration: Aug 10, 2017 Frequency: At least 5 of 7 days/Wk (IRF) Estimated Hrs Per Day: 1.5 hours per day Agreement: Yes Rehab Potential: Good Time/GCodes Start Time: 09:40 Stop Time: 10:40 Total Time Billed (hr/min): 60 Billed Treatment Time 1, EVM x 15minutes, ADL x 30minutes, Ex x 15minutes KATHERINE FARAH OT Jul 27, 2017 11:51
--- NOTE | 2017-07-27 12:02 | PM&R Post Admission Assessment ---
Post Admission Physician Asses The preadmission screen agrees with the post admission assessment that the patient is a good candidate for inpatient rehabilitation. The patient will have a comprehensive program of inpatient rehabilitation with a goal of maximizing level of functional independence prior to discharge home with spouse. The patient will have PT/OT ninety minutes per day, each discipline, five days a week for gait, strengthening, conditioning, balance, ADLs, any patient/family/caregiver training as necessary. Speech therapy to do cognitive assessment and treat as indicated. Rehabilitation nursing to assist with bowel, bladder, skin, wound care, medication administration, pain management. Running Instructor to assist with discharge planning, community reentry. SCD's for DVT prophylaxis. He appears to be well motivated to participate in three hours of therapy a day. He should be able to tolerate three hours of therapy a day from a medical standpoint. He should benefit from the three hours of therapy a day. He has a reasonable discharge plan, reasonable discharge rehabilitation goals and a supportive family. He has various comorbidities that need to be closely monitored with medications and treatments adjusted on a daily basis as needed. These include: tachycardia hypotension with hx of HTN DM Barriers to discharge for this patient who had been independent prior to this are for him to be modified independent to supervision for ADLs and mobility skills prior to discharge home with spouse, so as to lessen the burden of the caregivers. Risks for this patient include: 1. Fall 2. Fracture 3. DVT 4. Pulmonary embolism 5. Poorly controlled HR 6. Skin breakdown 7. Contractures 8. Poorly controlled pain 9. Urinary retention 10. UTI 11. Respiratory infection 12. Aspiration 13. Poorly controlled Blood pressure Estimated Length of Stay: 14 days Prognosis: Rehab prognosis appears good for goal of discharge home with spouse modified independent to supervision for ADLs and mobility skills. [facility] CODE 03.3 Etiologic Dx Critical illness myopathy COLUMBA TRIPP MD Jul 27, 2017 12:02
--- NOTE | 2017-07-27 12:16 | PM & R (SOAP) Progress Note ---
Subjective Time Seen by Provider: 07:30 Subjective/Events-last exam Patient was seen in his room this AM Adjusting well to unit Denies SOB CP or dizziness Blood pressure better still tachycardic at rest most likely due to deconditioning Patient Min assist for transfers and Gait Review of Systems Neurological: Weakness Objective Exam Last Set of Vital Signs Vital Signs Date Time Temp Pulse Resp B/P (MAP) Pulse Ox O2 Delivery O2 Flow Rate FiO2 07/27/17 06:00 99.5 117 16 100/61 (74) 93 Room Air Capillary Refill : I&O Intake and Output 07/27/17 00:00 Daily Weight Change No General: Alert, Oriented X3, Cooperative, No Acute Distress HEENT: Atraumatic, PERRLA Neck: Supple, No JVD Lungs: Clear to Auscultation Heart: Other (rapid rate) Abdomen: Normal Bowel Sounds, Soft, No Tenderness Extremities: No Edema Neuro: Other (Strength 4-/5) Results Lab Laboratory Tests 07/26/17 22:02: Glucometer 262H 07/27/17 05:01: Glucometer 136H 07/27/17 07:00: White Blood Count 12.0H, Red Blood Count 2.67L, Hemoglobin 8.0L, Hematocrit 25L , Mean Corpuscular Volume 94, Mean Corpuscular Hemoglobin 30, Mean Corpuscular Hemoglobin Concent 32, Red Cell Distribution Width 14.1, Platelet Count 436H, Mean Platelet Volume 9.1, Neutrophils (%) (Auto) 57, Lymphocytes (%) (Auto) 32, Monocytes (%) (Auto) 9, Eosinophils (%) (Auto) 1, Basophils (%) (Auto) 0, Neutrophils # (Auto) 6.9, Lymphocytes # (Auto) 3.9, Monocytes # (Auto) 1.1H, Eosinophils # (Auto) 0.2, Basophils # (Auto) 0.0, Sodium Level 138, Potassium Level 4.1, Chloride Level 102, Carbon Dioxide Level 27, Anion Gap 9, Blood Urea Nitrogen 11, Creatinine 0.80, Estimat Glomerular Filtration Rate > 60, BUN/ Creatinine Ratio 14, Glucose Level 148H, Calcium Level 8.8, Total Bilirubin 0.3 , Aspartate Amino Transf (AST/SGOT) 15, Alanine Aminotransferase (ALT/SGPT) 9, Alkaline Phosphatase 58, Total Protein 6.3L, Albumin 2.4L 07/27/17 11:28: Glucometer 264H Assessment/Plan Assessment 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
--- NOTE | 2017-07-27 14:16 | Occupational Ther Daily Note ---
OT Current Status-Daily Note Subjective No pain reported. Appearance Pt. in bed. Agrees to work with OT. Mental Status/Objective Patient Orientation: Person, Place, Time, Situation Functional [place] Measure 0=Not Assessed/NA 4=Minimal Assistance 1=Total Assistance 5=Supervision or Setup 2=Maximal Assistance 6=Modified [place] 3=Moderate Assistance 7=Complete [place] ADL-Treatment Functional [place] Measure 0=Not Assessed/NA 4=Minimal Assistance 1=Total Assistance 5=Supervision or Setup 2=Maximal Assistance 6=Modified [place] 3=Moderate Assistance 7=Complete IndependenceIRFPAI Quality Coding Scale 6 Independent with activity with or without an assistive device 5 Patient requires set up or clean up by helper. Patient completes activity by themselves 4 Supervision or touching assist (CGA). [place] provide cues , steadying assist 3 The helper provides less than half the effort to complete the activity 2 The helper provides more than half the effort to complete the activity 1 Dependent. The helper does all the effort to complete an activity 7 Patient refused to complete or attempt activity 9 The patient did not perform the activity before the current illness or injury 88 Not attempted due to Medical conditions or safety concerns Toileting (FIM): 5 Toileting Hygiene (QC): 5 Transfers (B, C, W/C) (FIM): 5 Toilet/Commode Transfer (FIM): 5 Toilet Transfer (QC): 5 Other Treatment Pt. able to ambulate to toilet, and perform toileting task with SBA. Ambulated with walker to therapy gym. Completed nut/bolt activity with no weights on bilateral UE. Able to do this relatively quickly. Donned 2 lb. wrist weights and completed nut/bolt activity, as well as arm arc activity to increase overall strength and endurance. Pt. required several brief rest breaks. Tolerated treatment well. All needs met back in room. Education OT Patient Education: Exercise program, Progress toward Goal/Update tx plan, Purpose of tx/functional activities, Reviewed precautions, Rehab process, Transfer techniques Teaching Recipient: Patient Teaching Methods: Demonstration, Discussion Response to Teaching: Verbalize Understanding, Return Demonstration OT Short Term Goals Short Term Goals Time Frame: Aug 03, 2017 Eating(FIM): 6 Grooming(FIM): 5 Bathing(FIM): 5 Upper Body Dressing(FIM): 5 Lower Body Dressing(FIM): 5 Toileting(FIM): 5 Transfers (B,C,W/C) (FIM): 5 Toilet/Commode Transfer(FIM): 5 Shower Transfer(FIM): 5 Additional Short Term Goals: 1-Demonstrate ADL Tasks, 2-Verbalize Understanding , 3-ImproveStrength/Dina 1=Demonstrate adherence to instructed precautions during ADL tasks. 2=Patient will verbalize/demonstrate understanding of assistive devices/ modifications for ADL. 3=Patient will improve strength/tolerance for activity to enable patient to perform ADL's. OT Retirement Goals Reel And Rewinder Operator Goals Time Frame: Aug 10, 2017 Eating (FIM): 6 Eating (QC): 6 Groomin Oral Hygiene (QC): 6 Bathing(FIM): 5 Shower/Bathe Self (QC): 4 Upper Body Dressing(FIM): 6 Upper Body Dressing (QC): 6 Lower Body Dressing(FIM): 6 Lower Body Dressing (QC): 6 On/Off Footwear (QC): 6 Toileting(FIM): 6 Toileting Hygiene (QC): 6 Transfers (B,C,W/C) (FIM): 6 Toilet/Commode Transfer(FIM): 6 Toilet/Commode Transfer (QC): 6 Shower Transfer(FIM): 5 Additional Goals: 1-Demonstrate ADL Tasks, 2-Verbalize Understanding, 3- ImproveStrength/Dina 1=Demonstrate adherence to instructed precautions during ADL tasks. 2=Patient will verbalize/demonstrate understanding of assistive devices/ modifications for ADL. 3=Patient will improve strength/tolerance for activity to enable patient to perform ADL's. OT Education/Plan Problem List/Assessment Assessment: Decreased Activ Tolerance, Impaired Funct Balance, Impaired I ADL's , Impaired Self-Care Skills Discharge Recommendations Plan/Recommendations: Continue POC Therapy D/C Recommendations: Home w/ Family Support Equpiment Recommendations-D/C: Extended Bath Bench Treatment Plan/Plan of Care Treatment,Training & Education: Yes Patient would benefit from OT for education, treatment and training to promote independence in ADL's, mobility, safety and/or upper extremity function for ADL' s. Plan of Care: ADL Retraining, Functional Mobility Treatment Duration: Aug 10, 2017 Frequency: At least 5 of 7 days/Wk (IRF) Estimated Hrs Per Day: 1.5 hours per day Agreement: Yes Rehab Potential: Good Time/GCodes Start Time: 13:30 Stop Time: 14:00 Total Time Billed (hr/min): 30 Billed Treatment Time 1, ADL x 15minutes, FA x 15minutes KATHERINE FARAH OT Jul 27, 2017 14:16
[2017-07-27] MEDS ORDERED: GLIM4TAB PO (14:37)
[2017-07-27] MEDS ORDERED: HYDR-3816 PO (14:37)
[2017-07-27] MEDS ORDERED: GUAI600T86 PO (14:37)
[2017-07-27] MEDS ORDERED: CANA300T PO (14:37)
[2017-07-27] MEDS ORDERED: EMPA25TA PO (14:37)
[2017-07-27] MEDS ORDERED: CELE-63 PO (14:37)
[2017-07-27] MEDS ORDERED: METF500T4 PO (14:37)
[2017-07-27] MEDS ORDERED: POTA99TA17 PO (14:37)
[2017-07-27] MEDS ORDERED: PSEU30TA37 PO (14:37)
[2017-07-27] MEDS ORDERED: LISI40TA PO (14:37)
[2017-07-27] MEDS ORDERED: VIAGRA PO (14:38)
--- NOTE | 2017-07-27 15:36 | Physical Therapy Daily Note ---
PT Daily Note-Current Subjective Patient in bed pre tx, agrees to PT, no complaints of pain. Appearance Patient in bed post tx with nurse call, phone, tray, in room. Mental Status Patient Orientation: Person, Place, Situation Transfers Functional [place] Measure 0=Not Assessed/NA 4=Minimal Assistance 1=Total Assistance 5=Supervision or Setup 2=Maximal Assistance 6=Modified [place] 3=Moderate Assistance 7=Complete IndependenceIRFPAI Quality Coding Scale 6 Independent with activity with or without an assistive device 5 Patient requires set up or clean up by helper. Patient completes activity by themselves 4 Supervision or touching assist (CGA). [place] provide cues , steadying assist 3 The helper provides less than half the effort to complete the activity 2 The helper provides more than half the effort to complete the activity 1 Dependent. The helper does all the effort to complete an activity 7 Patient refused to complete or attempt activity 9 The patient did not perform the activity before the current illness or injury 88 Not attempted due to Medical conditions or safety concerns Transfers (B, C, W/C) (FIM): 5 Scootin Rollin Supine to/from Sit: 6 Sit to/from Stand: 5 Bed to/from Chair: 5 Gait Training Gait (FIM): 5 Distance: 200'x2 Gait Level of Assist: 5 Gait Persons Needed: 1 Gait Assistive Device: FWW Slow ambulation but steady, no LOB Exercises NuStep Minutes: 15 NuStep Workload: 5 Treatments bed mobility and transfers, ambulation, functional strengthening Assessment Current Status: Fair Progress Improving transfers, needs to take several rest breaks on the NuStep PT Short Term Goals Short Term Goals Time Frame: Jul 30, 2017 Transfers (B,C,W/C) (FIM): 5 Gait (FIM): 5 Distance (FIM): 3=150 ft Gait Assistive Device: Cane Single Point PT Punch Machine Hand Goals Usp Goals PT Usp Goals Time Frame: Aug 06, 2017 Transfers (B,C,W/C) (FIM): 7 Sit to Lying (QC): 6 Lying-Sitting on Side/Bed(QC): 6 Sit to Stand (QC): 6 Roll Left to Right (QC): 6 Chair/Ehl-gx-Igzyn Xfer(QC): 6 Car Transfer (QC): 6 Does the Patient Walk: Yes Gait (FIM): 6 Gait distance (FIM): 3=150 ft Walk 10 feet (QC): 6 Walk 10ft-Uneven Surface(QC): 6 Walk 50ft with 2 Turns (QC): 6 Walk 150 ft (QC): 6 Gait Assistive Device: Cane Single Point Does the Pt use WC or Scooter?: No Stairs (FIM): 6 # of Steps: 12 1 Step (curb) (QC): 6 4 Steps (QC): 6 12 Steps (QC): 6 Picking up an Object (QC): 5 PT Plan Problem List Problem List: Activity Tolerance, Functional Strength, Safety, Balance, Gait, Transfer, Bed Mobility Treatment/Plan Treatment Plan: Continue Plan of Care Treatment Plan: Bed Mobility, Education, Functional Activity Dina, Functional Strength, Group Therapy, Gait, Safety, Therapeutic Exercise, Transfers Treatment Duration: Aug 06, 2017 Frequency: Modified Program (IRF) Estimated Hrs Per Day: 1.5 hours per day Patient and/or Family Agrees t: Yes Safety Risks/Education Patient Education: Gait Training, Transfer Techniques, Correct Positioning, Safety Issues Teaching Recipient: Patient Teaching Methods: Demonstration, Discussion Response to Teaching: Reinforcement Needed Time/GCodes Time In: 1500 Time Out: 1530 Total Billed Treatment Time: 30 Total Billed Treatment 1 visit GT 15' EX 15' FERNANDEZ MIR PT Jul 27, 2017 15:36
[2017-07-27 18:00] VITALS: BP 100/66
[2017-07-27] MEDS ORDERED: ACETAMINOPHEN 325 MG TABLET/CAPLET (TYLENOL) PO PRN (20:30)
[2017-07-27] MEDS: risperiDONE 1 MG (RisperDAL) TAB PO SCH (20:34)
[2017-07-27] MEDS: DONEPEZIL 5 MG (ARICEPT) TAB PO SCH (20:34)
[2017-07-27] MEDS: TOLTERODINE LA 4 MG (DETROL) CAP PO SCH (20:34)
[2017-07-28 05:15] VITALS: BP 108/70
[2017-07-28] MEDS: inSUlin (REGULAR) HUMAN 1 UNIT/0.01 ML (CHARGE PER UNIT) SC SCH ×4 (05:17→20:59)
[2017-07-28] MEDS: CALCIUM CARB + VIT D 600 MG (CALCARB + D) TAB PO SCH (06:01)
[2017-07-28] MEDS: MULTIVIT W/MINERALS TAB (THERAGRAN M) PO SCH (06:01)
[2017-07-28] MEDS: MEROPENEM 500 MG in NS (IVPB) 100 ML IV SCH ×3 (06:05→18:25)
--- NOTE | 2017-07-28 08:41 | Progress Note (SOAP) ---
Subjective Time Seen by Provider: 08:40 Subjective/Events-last exam Patient voices no complaints. Patient ready for PT and OT. Heart rate of 102 Objective Exam Vital Signs Date Time Temp Pulse Resp B/P (MAP) Pulse Ox O2 Delivery O2 Flow Rate FiO2 07/28/17 05:15 98.6 102 16 108/70 (83) 97 Room Air 07/27/17 21:28 Room Air 07/27/17 18:00 97.8 118 20 100/66 (77) 97 Room Air 07/27/17 09:00 Room Air 07/27/17 08:45 125 104/69 (81) 95 Room Air I & O 07/28/17 07:00 Intake Total 1600 ml Balance 1600 ml Capillary Refill : General Appearance: No Apparent Distress, WD/WN HEENT: Normal ENT Inspection Neck: Full Range of Motion, Normal Inspection Results Lab Laboratory Tests 07/27/17 11:28: Glucometer 264H 07/27/17 16:02: Glucometer 116H 07/27/17 20:09: Glucometer 271H 07/28/17 04:37: Glucometer 69L Assessment/Plan Assessment/Plan Assess & Plan/Chief Complaint Debility. Sepsis. Anemia. Pneumonia due to staph aureus on IV antibiotics. . 07/28/17. Debility. Sepsis. Anemia. Pneumonia due to staph aureus on IV antibiotics meropenem Clinical Quality Measures DVT/VTE Risk/Contraindication: Risk Factor Score Per Nursin RFS Level Per Nursing on Admit: 2=Moderate AUDI LEIVA DO Jul 28, 2017 08:40
[2017-07-28] MEDS: inSUlin NPH (NovoLIN N) 1 UNIT/0.01 ML (CHARGE PER UNIT) SQ SCH ×3 (09:05→21:10)
[2017-07-28] MEDS: PANTOPRAZOLE 40 MG (PROTONIX) TAB PO SCH ×2 (09:05→20:53)
[2017-07-28] MEDS: LORATADINE (CLARITIN) 10 MG TAB PO SCH (09:05)
[2017-07-28] MEDS: POLYETHYLENE GLYCOL 17 GM (MIRALAX) PACK PO SCH ×2 (09:05→20:53)
--- NOTE | 2017-07-28 09:56 | Physical Therapy Daily Note ---
PT Daily Note-Current Subjective Agreeable to PT. Reports he slept fairly well last night. Pain Numeric Pain Scale: 0-No Pain Location: No Pain Reported Mental Status Patient Orientation: Person, Place, Time, Situation Transfers Functional [place] Measure 0=Not Assessed/NA 4=Minimal Assistance 1=Total Assistance 5=Supervision or Setup 2=Maximal Assistance 6=Modified [place] 3=Moderate Assistance 7=Complete IndependenceIRFPAI Quality Coding Scale 6 Independent with activity with or without an assistive device 5 Patient requires set up or clean up by helper. Patient completes activity by themselves 4 Supervision or touching assist (CGA). [place] provide cues , steadying assist 3 The helper provides less than half the effort to complete the activity 2 The helper provides more than half the effort to complete the activity 1 Dependent. The helper does all the effort to complete an activity 7 Patient refused to complete or attempt activity 9 The patient did not perform the activity before the current illness or injury 88 Not attempted due to Medical conditions or safety concerns Transfers (B, C, W/C) (FIM): 5 Supine to/from Sit: 5 Sit to/from Stand: 5 SBA with all functional transfers. Toilet transfer with SBA as well; SBA to manage clothing. Gait Training Does the Patient Walk?: Yes Gait (FIM): 5 Distance (FIM): 3=150 ft Gait Assistive Device: FWW 250 ft, 150 ft, 200 ft, 50 ft. Exercises Standing: Hamstring curls, Heel/toe raises, 3 way Ex=Flex, Abd, Ext, Marching, Mini squats Standing Reps: 10 (2 sets) Standing ther ex to work on functional activity tolerance, LE strength and core stability to improve and progress gait to least restrictive AD. NuStep Minutes: 10 NuStep Workload: 4 (to increase LE strength and functional activity tolerance. ) Assessment Current Status: Good Progress Pt seemed more alert today and with increased functional activity tolerance. PT Short Term Goals Short Term Goals Time Frame: Jul 30, 2017 Transfers (B,C,W/C) (FIM): 5 (met) Gait (FIM): 5 (mt) Distance (FIM): 3=150 ft Gait Assistive Device: Cane Single Point PT Mcfp Goals Mcfp Goals PT Room Service Manager Goals Time Frame: Aug 06, 2017 Transfers (B,C,W/C) (FIM): 7 Sit to Lying (QC): 6 Lying-Sitting on Side/Bed(QC): 6 Sit to Stand (QC): 6 Rollin Roll Left to Right (QC): 6 Chair/Ypy-ie-Tuvms Xfer(QC): 6 Car Transfer (QC): 6 Does the Patient Walk: Yes Gait (FIM): 6 Gait distance (FIM): 3=150 ft Walk 10 feet (QC): 6 Walk 10ft-Uneven Surface(QC): 6 Walk 50ft with 2 Turns (QC): 6 Walk 150 ft (QC): 6 Gait Assistive Device: Cane Single Point Does the Pt use WC or Scooter?: No Stairs (FIM): 6 # of Steps: 12 1 Step (curb) (QC): 6 4 Steps (QC): 6 12 Steps (QC): 6 Picking up an Object (QC): 5 PT Plan Problem List Problem List: Activity Tolerance, Functional Strength, Safety, Balance, Gait, Transfer Treatment/Plan Treatment Plan: Continue Plan of Care Treatment Plan: Bed Mobility, Education, Functional Activity Dina, Functional Strength, Group Therapy, Gait, Safety, Therapeutic Exercise, Transfers Treatment Duration: Aug 06, 2017 Frequency: Modified Program (IRF) Estimated Hrs Per Day: 1.5 hours per day Patient and/or Family Agrees t: Yes Safety Risks/Education Patient Education: Safety Issues Teaching Recipient: Patient Teaching Methods: Discussion Response to Teaching: Verbalize Understanding Time/GCodes Time In: 830 Time Out: 930 Total Billed Treatment Time: 60 Total Billed Treatment visit EX 40 GT 20 MARCELO MENA PT Jul 28, 2017 09:56
--- NOTE | 2017-07-28 10:13 | PM & R (SOAP) Progress Note ---
Subjective Time Seen by Provider: 08:05 Subjective/Events-last exam Patient was seen in his room this AM Patient SBA for transfers Tachycardia and Hypotension improving-normalizing Objective Exam Last Set of Vital Signs Vital Signs Date Time Temp Pulse Resp B/P (MAP) Pulse Ox O2 Delivery O2 Flow Rate FiO2 07/28/17 05:15 98.6 102 16 108/70 (83) 97 Room Air Capillary Refill : I&O Intake and Output 07/28/17 00:00 Intake Total 1150 ml Balance 1150 ml Intake Oral 1150 ml # Voids 6 General: Alert, Oriented X3, Cooperative, No Acute Distress HEENT: Atraumatic, PERRLA Neck: Supple, No JVD Lungs: Clear to Auscultation Heart: Other (rapid rate) Abdomen: Normal Bowel Sounds, Soft, No Tenderness Extremities: No Edema Neuro: Other (Strength 4-/5) Results Lab Laboratory Tests 07/26/17 22:02: Glucometer 262H 07/27/17 05:01: Glucometer 136H 07/27/17 07:00: White Blood Count 12.0H, Red Blood Count 2.67L, Hemoglobin 8.0L, Hematocrit 25L , Mean Corpuscular Volume 94, Mean Corpuscular Hemoglobin 30, Mean Corpuscular Hemoglobin Concent 32, Red Cell Distribution Width 14.1, Platelet Count 436H, Mean Platelet Volume 9.1, Neutrophils (%) (Auto) 57, Lymphocytes (%) (Auto) 32, Monocytes (%) (Auto) 9, Eosinophils (%) (Auto) 1, Basophils (%) (Auto) 0, Neutrophils # (Auto) 6.9, Lymphocytes # (Auto) 3.9, Monocytes # (Auto) 1.1H, Eosinophils # (Auto) 0.2, Basophils # (Auto) 0.0, Sodium Level 138, Potassium Level 4.1, Chloride Level 102, Carbon Dioxide Level 27, Anion Gap 9, Blood Urea Nitrogen 11, Creatinine 0.80, Estimat Glomerular Filtration Rate > 60, BUN/ Creatinine Ratio 14, Glucose Level 148H, Calcium Level 8.8, Total Bilirubin 0.3 , Aspartate Amino Transf (AST/SGOT) 15, Alanine Aminotransferase (ALT/SGPT) 9, Alkaline Phosphatase 58, Total Protein 6.3L, Albumin 2.4L 07/27/17 11:28: Glucometer 264H 07/27/17 16:02: Glucometer 116H 07/27/17 20:09: Glucometer 271H 07/28/17 04:37: Glucometer 69L 07/28/17 09:45: Glucometer 172H Assessment/Plan Assessment 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
[2017-07-28 12:19] LABS: BASOPHILS % (AUTO) 0 % (0-10); EOSINOPHILS # (AUTO) 0.1 10^3/uL (0.0-0.3); EOSINOPHILS % (AUTO) 1 % (0-10); HEMATOCRIT 28 % (40-54); HEMOGLOBIN 8.9 G/DL (13.3-17.7); LYMPHOCYTES # (AUTO) 3.9 X 10^3 (1.0-4.0); LYMPHOCYTES % (AUTO) 27 % (12-44); MEAN CORPUSCULAR HEMOGLOBIN 30 PG (25-34); MEAN CORPUSCULAR HGB CONC 32 G/DL (32-36); MEAN CORPUSCULAR VOLUME 93 FL (80-99); MEAN PLATELET VOLUME 9.1 FL (7.4-10.4); MONOCYTES # (AUTO) 1.1 X 10^3 (0.0-1.0); MONOCYTES % (AUTO) 8 % (0-12); NEUTROPHILS # (AUTO) 9.1 X 10^3 (1.8-7.8); NEUTROPHILS % (AUTO) 64 % (42-75); PLATELET COUNT 429 10^3/uL (130-400); RED BLOOD COUNT 2.99 10^6/uL (4.35-5.85); RED CELL DISTRIBUTION WIDTH 14.3 % (10.0-14.5); WHITE BLOOD COUNT 14.2 10^3/uL (4.3-11.0)
[2017-07-28 12:43] LABS: ALANINE AMINOTRANSFERASE 10 U/L (0-55); ALBUMIN 2.6 GM/DL (3.2-4.5); ALKALINE PHOSPHATASE 60 U/L (40-136); BILIRUBIN,TOTAL 0.1 MG/DL (0.1-1.0); BUN/CREATININE RATIO 14; CALCIUM 8.9 MG/DL (8.5-10.1); CARBON DIOXIDE 28 MMOL/L (21-32); CHLORIDE 104 MMOL/L (98-107); CREATININE SERUM 0.85 MG/DL (0.60-1.30); GFR ESTIMATED > 60; GLUCOSE 164 MG/DL (70-105); SODIUM 136 MMOL/L (135-145); TOTAL PROTEIN 6.5 GM/DL (6.4-8.2)
[2017-07-28 13:27] LABS: ANISOCYTOSIS SLIGHT; BAND NEUTROPHILS 1 %; BASOPHILS % (MANUAL) 0 %; EOSINOPHILS % (MANUAL) 0 %; LYMPHOCYTES % (MANUAL) 22 %; MONOCYTES % (MANUAL) 4 %; NEUTROPHILS % (MANUAL) 73 %; STOMATOCYTES SLIGHT
--- NOTE | 2017-07-28 13:42 | Occupational Ther Daily Note ---
OT Current Status-Daily Note Subjective No pain reported. Appearance Pt. in bed. Agrees to shower. Mental Status/Objective Patient Orientation: Person, Place, Time Functional [place] Measure 0=Not Assessed/NA 4=Minimal Assistance 1=Total Assistance 5=Supervision or Setup 2=Maximal Assistance 6=Modified [place] 3=Moderate Assistance 7=Complete [place] ADL-Treatment Functional [place] Measure 0=Not Assessed/NA 4=Minimal Assistance 1=Total Assistance 5=Supervision or Setup 2=Maximal Assistance 6=Modified [place] 3=Moderate Assistance 7=Complete IndependenceIRFPAI Quality Coding Scale 6 Independent with activity with or without an assistive device 5 Patient requires set up or clean up by helper. Patient completes activity by themselves 4 Supervision or touching assist (CGA). [place] provide cues , steadying assist 3 The helper provides less than half the effort to complete the activity 2 The helper provides more than half the effort to complete the activity 1 Dependent. The helper does all the effort to complete an activity 7 Patient refused to complete or attempt activity 9 The patient did not perform the activity before the current illness or injury 88 Not attempted due to Medical conditions or safety concerns Grooming (FIM): 5 (set up) Bathing (FIM): 5 (SBA to bathe self.) Shower/Bathe Self (QC): 4 Upper Body (FIM): 5 Upper Body Dressing (QC): 4 Lower Body Dressing (FIM): 5 Lower Body Dressing (QC): 4 On/Off Footwear (QC): 4 Transfers (B, C, W/C) (FIM): 5 Shower Transfer(FIM): 5 Other Treatment After shower, pt. agreed to ambulate to therapy gym. Tolerated 10 minutes on armbike to increase overall strength and independence. Pt. tolerated well with several brief rest breaks. Ambulated back to room. All needs met. Pt. requested to lay down. Education OT Patient Education: Correct positioning, Modified ADL techniques, Progress toward Goal/Update tx plan, Purpose of tx/functional activities, Reviewed precautions, Rehab process, Transfer techniques Teaching Recipient: Patient Teaching Methods: Demonstration, Discussion Response to Teaching: Verbalize Understanding, Return Demonstration OT Short Term Goals Short Term Goals Time Frame: Aug 03, 2017 Eating(FIM): 6 Grooming(FIM): 5 Bathing(FIM): 5 Upper Body Dressing(FIM): 5 Lower Body Dressing(FIM): 5 Toileting(FIM): 5 Transfers (B,C,W/C) (FIM): 5 (met) Toilet/Commode Transfer(FIM): 5 Shower Transfer(FIM): 5 Additional Short Term Goals: 1-Demonstrate ADL Tasks, 2-Verbalize Understanding , 3-ImproveStrength/Dina 1=Demonstrate adherence to instructed precautions during ADL tasks. 2=Patient will verbalize/demonstrate understanding of assistive devices/ modifications for ADL. 3=Patient will improve strength/tolerance for activity to enable patient to perform ADL's. OT Bicycle Messenger Goals Assisted Goals Time Frame: Aug 10, 2017 Eating (FIM): 6 Eating (QC): 6 Groomin Oral Hygiene (QC): 6 Bathing(FIM): 5 Shower/Bathe Self (QC): 4 Upper Body Dressing(FIM): 6 Upper Body Dressing (QC): 6 Lower Body Dressing(FIM): 6 Lower Body Dressing (QC): 6 On/Off Footwear (QC): 6 Toileting(FIM): 6 Toileting Hygiene (QC): 6 Transfers (B,C,W/C) (FIM): 6 Toilet/Commode Transfer(FIM): 6 Toilet/Commode Transfer (QC): 6 Shower Transfer(FIM): 5 Additional Goals: 1-Demonstrate ADL Tasks, 2-Verbalize Understanding, 3- ImproveStrength/Dina 1=Demonstrate adherence to instructed precautions during ADL tasks. 2=Patient will verbalize/demonstrate understanding of assistive devices/ modifications for ADL. 3=Patient will improve strength/tolerance for activity to enable patient to perform ADL's. OT Education/Plan Problem List/Assessment Assessment: Decreased Activ Tolerance, Impaired I ADL's Discharge Recommendations Plan/Recommendations: Continue POC Therapy D/C Recommendations: Home w/ Family Support Treatment Plan/Plan of Care Treatment,Training & Education: Yes Patient would benefit from OT for education, treatment and training to promote independence in ADL's, mobility, safety and/or upper extremity function for ADL' s. Plan of Care: ADL Retraining, Functional Mobility, UE Funct Exercise/Act Treatment Duration: Aug 10, 2017 Frequency: At least 5 of 7 days/Wk (IRF) Estimated Hrs Per Day: 1.5 hours per day Agreement: Yes Rehab Potential: Good Time/GCodes Start Time: 09:30 Stop Time: 10:30 Total Time Billed (hr/min): 60 Billed Treatment Time 1, ADL x 45minutes, Ex x 15minutes KATHERINE FARAH OT Jul 28, 2017 13:42
--- NOTE | 2017-07-28 14:38 | Therapy Group Daily Note ---
Therapy Daily Group Note Patient Education Topic Exercises (benefits of exercise), Other List Below (rehab process review, memory strategies ) Exercises LE Seated Exercise, UE Exercise Other/Notes Pt. participated in group PT OT session. Pt. came and went via W SBA . Pt. introduced himself and was social with others. Pts. participated in self lead exercise via written illustrated exercise cards that were distributed to each patient. Memory strategies and matching activity was conducted with all pts using bag toss to indicate the matches assembled on the floor. Pt. required SBA to TRF in to bed after Rx. [place] at hand Start Time: 13:00 Stop Time: 14:00 Total Billed Treatment Time: 60 Total Billed Treatment 1,GRP NEPTALI ZIMMERMAN ENDLESS TRACK VEHICLE SUPERVISOR Jul 28, 2017 14:38
[2017-07-28 18:08] VITALS: BP 99/62
[2017-07-28] MEDS: TOLTERODINE LA 4 MG (DETROL) CAP PO SCH (20:53)
[2017-07-28] MEDS: risperiDONE 1 MG (RisperDAL) TAB PO SCH (20:53)
[2017-07-28] MEDS: DONEPEZIL 5 MG (ARICEPT) TAB PO SCH (20:54)
[2017-07-29] MEDS: MEROPENEM 500 MG in NS (IVPB) 100 ML IV SCH ×5 (00:48→23:36)
[2017-07-29] MEDS: inSUlin (REGULAR) HUMAN 1 UNIT/0.01 ML (CHARGE PER UNIT) SC SCH ×4 (05:00→20:52)
[2017-07-29] MEDS: MULTIVIT W/MINERALS TAB (THERAGRAN M) PO SCH (06:04)
[2017-07-29] MEDS: CALCIUM CARB + VIT D 600 MG (CALCARB + D) TAB PO SCH (06:04)
[2017-07-29 06:41] VITALS: BP 114/71
--- NOTE | 2017-07-29 08:11 | Progress Note (SOAP) ---
Subjective Time Seen by Provider: 08:10 Subjective/Events-last exam Patient's sugar low this a.m. To decrease insulin. Sepsis. Next Objective Exam Vital Signs Date Time Temp Pulse Resp B/P (MAP) Pulse Ox O2 Delivery O2 Flow Rate FiO2 07/29/17 06:41 98.4 107 17 114/71 (85) 94 Room Air 07/28/17 22:00 Room Air 07/28/17 18:08 98.7 111 14 99/62 (74) 96 Room Air 07/28/17 09:00 Room Air I & O 07/29/17 07:00 Intake Total 1310 ml Balance 1310 ml Capillary Refill : General Appearance: No Apparent Distress, Thin HEENT: Normal ENT Inspection Neck: Full Range of Motion, Normal Inspection Respiratory: Lungs Clear, No Accessory Muscle Use, No Respiratory Distress Cardiovascular: Regular Rate, Rhythm Gastrointestinal: non tender, soft Results Lab Laboratory Tests 07/28/17 12:15 Laboratory Tests 07/28/17 09:45: Glucometer 172H 07/28/17 12:15: White Blood Count 14.2H, Red Blood Count 2.99L, Hemoglobin 8.9L, Hematocrit 28L , Mean Corpuscular Volume 93, Mean Corpuscular Hemoglobin 30, Mean Corpuscular Hemoglobin Concent 32, Red Cell Distribution Width 14.3, Platelet Count 429H, Mean Platelet Volume 9.1, Neutrophils (%) (Auto) 64, Lymphocytes (%) (Auto) 27, Monocytes (%) (Auto) 8, Eosinophils (%) (Auto) 1, Basophils (%) (Auto) 0, Neutrophils # (Auto) 9.1H, Lymphocytes # (Auto) 3.9, Monocytes # (Auto) 1.1H, Eosinophils # (Auto) 0.1, Basophils # (Auto) 0.0, Neutrophils % (Manual) 73, Lymphocytes % (Manual) 22, Monocytes % (Manual) 4, Eosinophils % (Manual) 0, Basophils % (Manual) 0, Band Neutrophils 1, Anisocytosis SLIGHT, Stomatocytes SLIGHT, Sodium Level 136, Potassium Level 4.0, Chloride Level 104, Carbon Dioxide Level 28, Anion Gap 4L, Blood Urea Nitrogen 12, Creatinine 0.85, Estimat Glomerular Filtration Rate > 60, BUN/Creatinine Ratio 14, Glucose Level 164H, Calcium Level 8.9, Total Bilirubin 0.1, Aspartate Amino Transf (AST/SGOT) 11, Alanine Aminotransferase (ALT/SGPT) 10, Alkaline Phosphatase 60, Total Protein 6.5, Albumin 2.6L 07/28/17 12:59: Glucometer 150H 07/28/17 16:05: Glucometer 138H 07/28/17 20:36: Glucometer 238H 07/29/17 04:47: Glucometer 63L 07/29/17 05:13: Glucometer 109 Assessment/Plan Assessment/Plan Assess & Plan/Chief Complaint Debility. Sepsis. Anemia. Pneumonia due to staph aureus on IV antibiotics. . 07/28/17. Debility. Sepsis. Anemia. Pneumonia due to staph aureus on IV antibiotics meropenem. . 07/29/17. Debility. Sepsis. Anemia. Pneumonia due to staph aureus. Episode of hypoglycemia. To reduce the insulin Clinical Quality Measures DVT/VTE Risk/Contraindication: Risk Factor Score Per Nursin RFS Level Per Nursing on Admit: 2=Moderate AUDI LEIVA DO Jul 29, 2017 08:11
[2017-07-29] MEDS: POLYETHYLENE GLYCOL 17 GM (MIRALAX) PACK PO SCH ×3 (09:45→20:51)
[2017-07-29] MEDS: PANTOPRAZOLE 40 MG (PROTONIX) TAB PO SCH ×2 (09:45→20:51)
[2017-07-29] MEDS: LORATADINE (CLARITIN) 10 MG TAB PO SCH (09:45)
[2017-07-29] MEDS: inSUlin NPH (NovoLIN N) 1 UNIT/0.01 ML (CHARGE PER UNIT) SQ SCH ×2 (09:47→20:53)
--- NOTE | 2017-07-29 10:28 | PM & R (SOAP) Progress Note ---
Subjective Time Seen by Provider: 09:45 Subjective/Events-last exam Patient was seen in his room this AM Patient SBA for transfers Tachycardia and Blood Pressure improving Objective Exam Last Set of Vital Signs Vital Signs Date Time Temp Pulse Resp B/P (MAP) Pulse Ox O2 Delivery O2 Flow Rate FiO2 07/29/17 09:00 Room Air 07/29/17 06:41 98.4 107 17 114/71 (85) 94 Capillary Refill : I&O Intake and Output 07/29/17 00:00 Intake Total 1860 ml Balance 1860 ml Intake Oral 1660 ml IV Total 200 ml # Voids 7 General: Alert, Oriented X3, Cooperative, No Acute Distress HEENT: Atraumatic, PERRLA Neck: Supple, No JVD Lungs: Clear to Auscultation Heart: Other (rapid rate) Abdomen: Normal Bowel Sounds, Soft, No Tenderness Extremities: No Edema Neuro: Other (Strength 4-/5) Results Lab Laboratory Tests 07/26/17 22:02: Glucometer 262H 07/27/17 05:01: Glucometer 136H 07/27/17 07:00: White Blood Count 12.0H, Red Blood Count 2.67L, Hemoglobin 8.0L, Hematocrit 25L , Mean Corpuscular Volume 94, Mean Corpuscular Hemoglobin 30, Mean Corpuscular Hemoglobin Concent 32, Red Cell Distribution Width 14.1, Platelet Count 436H, Mean Platelet Volume 9.1, Neutrophils (%) (Auto) 57, Lymphocytes (%) (Auto) 32, Monocytes (%) (Auto) 9, Eosinophils (%) (Auto) 1, Basophils (%) (Auto) 0, Neutrophils # (Auto) 6.9, Lymphocytes # (Auto) 3.9, Monocytes # (Auto) 1.1H, Eosinophils # (Auto) 0.2, Basophils # (Auto) 0.0, Sodium Level 138, Potassium Level 4.1, Chloride Level 102, Carbon Dioxide Level 27, Anion Gap 9, Blood Urea Nitrogen 11, Creatinine 0.80, Estimat Glomerular Filtration Rate > 60, BUN/ Creatinine Ratio 14, Glucose Level 148H, Calcium Level 8.8, Total Bilirubin 0.3 , Aspartate Amino Transf (AST/SGOT) 15, Alanine Aminotransferase (ALT/SGPT) 9, Alkaline Phosphatase 58, Total Protein 6.3L, Albumin 2.4L 07/27/17 11:28: Glucometer 264H 07/27/17 16:02: Glucometer 116H 07/27/17 20:09: Glucometer 271H 07/28/17 04:37: Glucometer 69L 07/28/17 09:45: Glucometer 172H 07/28/17 12:15: White Blood Count 14.2H, Red Blood Count 2.99L, Hemoglobin 8.9L, Hematocrit 28L , Mean Corpuscular Volume 93, Mean Corpuscular Hemoglobin 30, Mean Corpuscular Hemoglobin Concent 32, Red Cell Distribution Width 14.3, Platelet Count 429H, Mean Platelet Volume 9.1, Neutrophils (%) (Auto) 64, Lymphocytes (%) (Auto) 27, Monocytes (%) (Auto) 8, Eosinophils (%) (Auto) 1, Basophils (%) (Auto) 0, Neutrophils # (Auto) 9.1H, Lymphocytes # (Auto) 3.9, Monocytes # (Auto) 1.1H, Eosinophils # (Auto) 0.1, Basophils # (Auto) 0.0, Neutrophils % (Manual) 73, Lymphocytes % (Manual) 22, Monocytes % (Manual) 4, Eosinophils % (Manual) 0, Basophils % (Manual) 0, Band Neutrophils 1, Anisocytosis SLIGHT, Stomatocytes SLIGHT, Sodium Level 136, Potassium Level 4.0, Chloride Level 104, Carbon Dioxide Level 28, Anion Gap 4L, Blood Urea Nitrogen 12, Creatinine 0.85, Estimat Glomerular Filtration Rate > 60, BUN/Creatinine Ratio 14, Glucose Level 164H, Calcium Level 8.9, Total Bilirubin 0.1, Aspartate Amino Transf (AST/SGOT) 11, Alanine Aminotransferase (ALT/SGPT) 10, Alkaline Phosphatase 60, Total Protein 6.5, Albumin 2.6L 07/28/17 12:59: Glucometer 150H 07/28/17 16:05: Glucometer 138H 07/28/17 20:36: Glucometer 238H 07/29/17 04:47: Glucometer 63L 07/29/17 05:13: Glucometer 109 Assessment/Plan Assessment 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
[2017-07-29] MEDS ORDERED: ERTA1VIA3 IV (10:40)
--- NOTE | 2017-07-29 12:46 | Physical Therapy Daily Note ---
PT Daily Note-Current Subjective Pt laying Supine in bed upon arrival. Pt agrees to PT. Pain Numeric Pain Scale: 5-Moderate Pain Location Body Site: Back Pain Description: Ache Mental Status Patient Orientation: Person, Place, Time, Situation Transfers Functional [place] Measure 0=Not Assessed/NA 4=Minimal Assistance 1=Total Assistance 5=Supervision or Setup 2=Maximal Assistance 6=Modified [place] 3=Moderate Assistance 7=Complete IndependenceIRFPAI Quality Coding Scale 6 Independent with activity with or without an assistive device 5 Patient requires set up or clean up by helper. Patient completes activity by themselves 4 Supervision or touching assist (CGA). May provide cues , steadying assist 3 The helper provides less than half the effort to complete the activity 2 The helper provides more than half the effort to complete the activity 1 Dependent. The helper does all the effort to complete an activity 7 Patient refused to complete or attempt activity 9 The patient did not perform the activity before the current illness or injury 88 Not attempted due to Medical conditions or safety concerns Scootin Rollin Roll Left to Right (QC): 5 Supine to/from Sit: 5 Sit to/from Stand: 5 Sit to Lying (QC): 5 Sit to Stand (QC): 5 Weight Bearing Right Lower Extremity: Right Full Weight Bearing Left Lower Extremity: Left Full Weight Bearing Gait Training Does the Patient Walk?: Yes Distance (FIM): 3=150 ft Distance: 200' Walk 10 feet (QC): 5 Walk 50 ft with 2 Turns(QC): 5 Walk 150 ft (QC): 5 Gait Level of Assist: 5 Gait Persons Needed: 1 Gait Assistive Device: FWW Pt has slow rigoberto but otherwise normalized gait. Pt reports dizziness/light headedness with changes in position. Wheelchair Training Does the Pt Use a Wheelchair?: No Exercises Supine Ex: Quad Set, Rolling, Heel Slides, Straight leg raise, Hip abd/add Supine Reps: 15 (2 sets) Seated Therapy Exercises: Ankle pumps, Long arc quads, Hip flexion, Kicking activity, Hip abd/add Seated Reps: 15 Treatments Pt transfers from bed using FWW at SBA. Pt ambulates in hallway using FWW at SBA due to dizziness/lightheadedness. Pt completes Seated EX in chair then transfers to Supine in bed to complete Ex. Pt transfers to EOM after Ex but needs a recovery period due to dizziness. Pt ambulates back to room to rest at EOB and order lunch. Pt resting at end of tx with all needs met, including call light in hand. Assessment Current Status: Good Progress Pt is able to complete all tasks given although reports dizziness/ lightheadedness. PT Short Term Goals Short Term Goals Time Frame: Jul 30, 2017 Transfers (B,C,W/C) (FIM): 5 (met) Gait (FIM): 5 (mt) Distance (FIM): 3=150 ft Gait Assistive Device: Cane Single Point PT Fpc Goals Metal Stud Framer Goals PT Fpc Goals Time Frame: Aug 06, 2017 Transfers (B,C,W/C) (FIM): 7 Sit to Lying (QC): 6 Lying-Sitting on Side/Bed(QC): 6 Sit to Stand (QC): 6 Rollin Roll Left to Right (QC): 6 Chair/[id number] Xfer(QC): 6 Car Transfer (QC): 6 Does the Patient Walk: Yes Gait (FIM): 6 Gait distance (FIM): 3=150 ft Walk 10 feet (QC): 6 Walk 10ft-Uneven Surface(QC): 6 Walk 50ft with 2 Turns (QC): 6 Walk 150 ft (QC): 6 Gait Assistive Device: Cane Single Point Does the Pt use WC or Scooter?: No Stairs (FIM): 6 # of Steps: 12 1 Step (curb) (QC): 6 4 Steps (QC): 6 12 Steps (QC): 6 Picking up an Object (QC): 5 PT Plan Problem List Problem List: Activity Tolerance, Safety, Balance Treatment/Plan Treatment Plan: Continue Plan of Care Treatment Plan: Bed Mobility, Education, Functional Activity Dina, Functional Strength, Group Therapy, Gait, Safety, Therapeutic Exercise, Transfers Treatment Duration: Aug 06, 2017 Frequency: Modified Program (IRF) Estimated Hrs Per Day: 1.5 hours per day Patient and/or Family Agrees t: Yes Safety Risks/Education Patient Education: Gait Training, Transfer Techniques, Correct Positioning, Safety Issues Teaching Recipient: Patient Teaching Methods: Discussion Response to Teaching: Verbalize Understanding Time/GCodes Time In: 1140 Time Out: 1225 Total Billed Treatment Time: 45 Total Billed Treatment 1, GT (15m) & EX x2 (30m) ZAIRE BALLARD REPLANTING MACHINE CREWMAN Jul 29, 2017 12:46
--- NOTE | 2017-07-29 14:38 | Occupational Ther Daily Note ---
OT Current Status-Daily Note Subjective No pain reported. However, pt. did report being light headed once he was in the gym. Nursing notified. Appearance Pt. in bed. Declines showering, but agrees to work with OT. Mental Status/Objective Patient Orientation: Person, Place, Time, Situation Functional [place] Measure 0=Not Assessed/NA 4=Minimal Assistance 1=Total Assistance 5=Supervision or Setup 2=Maximal Assistance 6=Modified [place] 3=Moderate Assistance 7=Complete [place] Attachments: IV ADL-Treatment Functional [place] Measure 0=Not Assessed/NA 4=Minimal Assistance 1=Total Assistance 5=Supervision or Setup 2=Maximal Assistance 6=Modified [place] 3=Moderate Assistance 7=Complete IndependenceIRFPAI Quality Coding Scale 6 Independent with activity with or without an assistive device 5 Patient requires set up or clean up by helper. Patient completes activity by themselves 4 Supervision or touching assist (CGA). [place] provide cues , steadying assist 3 The helper provides less than half the effort to complete the activity 2 The helper provides more than half the effort to complete the activity 1 Dependent. The helper does all the effort to complete an activity 7 Patient refused to complete or attempt activity 9 The patient did not perform the activity before the current illness or injury 88 Not attempted due to Medical conditions or safety concerns Transfers (B, C, W/C) (FIM): 5 (SBA to ambulate with walker to and from therapy gym.) Other Treatment Pt. able to ambulate to therapy gym with SBA. Completed 10 minutes on armbike with several brief rest breaks. Pt. then completed dumbbell exercises x 2 lbs. x 5 exercises x 15 reps in all planes. Tolerated treatment well, but after resting, reported that he felt light headed. Nursing notified and checked his blood sugar. Pt.'s blood sugar at 180. BP taken and it was 118/72. Pt. rested awhile and then ambulated back to room. All needs met. States that he feels better. All needs met in room. Education OT Patient Education: Correct positioning, Exercise program, Modified ADL techniques, Progress toward Goal/Update tx plan, Purpose of tx/functional activities, Reviewed precautions, Rehab process, Transfer techniques Teaching Recipient: Patient Teaching Methods: Demonstration, Discussion Response to Teaching: Verbalize Understanding, Return Demonstration OT Short Term Goals Short Term Goals Time Frame: Aug 03, 2017 Eating(FIM): 6 Grooming(FIM): 5 Bathing(FIM): 5 Upper Body Dressing(FIM): 5 Lower Body Dressing(FIM): 5 Toileting(FIM): 5 Transfers (B,C,W/C) (FIM): 5 (met) Toilet/Commode Transfer(FIM): 5 Shower Transfer(FIM): 5 Additional Short Term Goals: 1-Demonstrate ADL Tasks, 2-Verbalize Understanding , 3-ImproveStrength/Dina 1=Demonstrate adherence to instructed precautions during ADL tasks. 2=Patient will verbalize/demonstrate understanding of assistive devices/ modifications for ADL. 3=Patient will improve strength/tolerance for activity to enable patient to perform ADL's. OT Woolen Suiting Shrinker Goals Usp Goals Time Frame: Aug 10, 2017 Eating (FIM): 6 Eating (QC): 6 Groomin Oral Hygiene (QC): 6 Bathing(FIM): 5 Shower/Bathe Self (QC): 4 Upper Body Dressing(FIM): 6 Upper Body Dressing (QC): 6 Lower Body Dressing(FIM): 6 Lower Body Dressing (QC): 6 On/Off Footwear (QC): 6 Toileting(FIM): 6 Toileting Hygiene (QC): 6 Transfers (B,C,W/C) (FIM): 6 Toilet/Commode Transfer(FIM): 6 Toilet/Commode Transfer (QC): 6 Shower Transfer(FIM): 5 Additional Goals: 1-Demonstrate ADL Tasks, 2-Verbalize Understanding, 3- ImproveStrength/Dina 1=Demonstrate adherence to instructed precautions during ADL tasks. 2=Patient will verbalize/demonstrate understanding of assistive devices/ modifications for ADL. 3=Patient will improve strength/tolerance for activity to enable patient to perform ADL's. OT Education/Plan Problem List/Assessment Assessment: Decreased Activ Tolerance, Decreased UE Strength, Dependent Transfers, Impaired I ADL's, Impaired Self-Care Skills Discharge Recommendations Plan/Recommendations: Continue POC Therapy D/C Recommendations: Home w/ Family Support, Occupational Therapy Home Care Treatment Plan/Plan of Care Treatment,Training & Education: Yes Patient would benefit from OT for education, treatment and training to promote independence in ADL's, mobility, safety and/or upper extremity function for ADL' s. Plan of Care: ADL Retraining, Functional Mobility, UE Funct Exercise/Act Treatment Duration: Aug 10, 2017 Frequency: At least 5 of 7 days/Wk (IRF) Estimated Hrs Per Day: 1.5 hours per day Agreement: Yes Rehab Potential: Good Time/GCodes Start Time: 10:15 Stop Time: 11:15 Total Time Billed (hr/min): 60 Billed Treatment Time 1, Ex x 4 KATHERINE FARAH OT Jul 29, 2017 14:38
--- NOTE | 2017-07-29 14:52 | Occupational Ther Daily Note ---
OT Current Status-Daily Note Subjective Pt. asleep in room. Wakes up and agrees to work with OT. Appearance Pt. in bed, but wakes up. No pain reported. Mental Status/Objective Patient Orientation: Person, Place, Time, Situation Functional [place] Measure 0=Not Assessed/NA 4=Minimal Assistance 1=Total Assistance 5=Supervision or Setup 2=Maximal Assistance 6=Modified [place] 3=Moderate Assistance 7=Complete [place] Attachments: IV ADL-Treatment Functional [place] Measure 0=Not Assessed/NA 4=Minimal Assistance 1=Total Assistance 5=Supervision or Setup 2=Maximal Assistance 6=Modified [place] 3=Moderate Assistance 7=Complete IndependenceIRFPAI Quality Coding Scale 6 Independent with activity with or without an assistive device 5 Patient requires set up or clean up by helper. Patient completes activity by themselves 4 Supervision or touching assist (CGA). [place] provide cues , steadying assist 3 The helper provides less than half the effort to complete the activity 2 The helper provides more than half the effort to complete the activity 1 Dependent. The helper does all the effort to complete an activity 7 Patient refused to complete or attempt activity 9 The patient did not perform the activity before the current illness or injury 88 Not attempted due to Medical conditions or safety concerns Toileting (FIM): 5 Toileting Hygiene (QC): 5 Transfers (B, C, W/C) (FIM): 5 Toilet/Commode Transfer (FIM): 5 Toilet Transfer (QC): 5 Other Treatment Pt. ambulated to bathroom and completed toileting task with SBA. After toileting, ambulated to therapy gym. Completed 10 minutes on armbike with multiple rest breaks. Pt. states that he is tired. Ambulated back to room with all needs met. Education OT Patient Education: Modified ADL techniques, Progress toward Goal/Update tx plan, Purpose of tx/functional activities, Reviewed precautions, Rehab process, Transfer techniques Teaching Recipient: Patient Teaching Methods: Demonstration, Discussion Response to Teaching: Verbalize Understanding, Return Demonstration OT Short Term Goals Short Term Goals Time Frame: Aug 03, 2017 Eating(FIM): 6 Grooming(FIM): 5 Bathing(FIM): 5 Upper Body Dressing(FIM): 5 Lower Body Dressing(FIM): 5 Toileting(FIM): 5 Transfers (B,C,W/C) (FIM): 5 (met) Toilet/Commode Transfer(FIM): 5 Shower Transfer(FIM): 5 Additional Short Term Goals: 1-Demonstrate ADL Tasks, 2-Verbalize Understanding , 3-ImproveStrength/Dina 1=Demonstrate adherence to instructed precautions during ADL tasks. 2=Patient will verbalize/demonstrate understanding of assistive devices/ modifications for ADL. 3=Patient will improve strength/tolerance for activity to enable patient to perform ADL's. OT Hat And Cap Sewer Goals Hat And Cap Sewer Goals Time Frame: Aug 10, 2017 Eating (FIM): 6 Eating (QC): 6 Groomin Oral Hygiene (QC): 6 Bathing(FIM): 5 Shower/Bathe Self (QC): 4 Upper Body Dressing(FIM): 6 Upper Body Dressing (QC): 6 Lower Body Dressing(FIM): 6 Lower Body Dressing (QC): 6 On/Off Footwear (QC): 6 Toileting(FIM): 6 Toileting Hygiene (QC): 6 Transfers (B,C,W/C) (FIM): 6 Toilet/Commode Transfer(FIM): 6 Toilet/Commode Transfer (QC): 6 Shower Transfer(FIM): 5 Additional Goals: 1-Demonstrate ADL Tasks, 2-Verbalize Understanding, 3- ImproveStrength/Dina 1=Demonstrate adherence to instructed precautions during ADL tasks. 2=Patient will verbalize/demonstrate understanding of assistive devices/ modifications for ADL. 3=Patient will improve strength/tolerance for activity to enable patient to perform ADL's. OT Education/Plan Problem List/Assessment Assessment: Decreased Activ Tolerance, Impaired I ADL's, Impaired Self-Care Skills Discharge Recommendations Plan/Recommendations: Continue POC Therapy D/C Recommendations: Home w/ Family Support Treatment Plan/Plan of Care Treatment,Training & Education: Yes Patient would benefit from OT for education, treatment and training to promote independence in ADL's, mobility, safety and/or upper extremity function for ADL' s. Plan of Care: ADL Retraining, Functional Mobility, UE Funct Exercise/Act Treatment Duration: Aug 10, 2017 Frequency: At least 5 of 7 days/Wk (IRF) Estimated Hrs Per Day: 1.5 hours per day Agreement: Yes Rehab Potential: Good Time/GCodes Start Time: 14:00 Stop Time: 14:30 Total Time Billed (hr/min): 30 Billed Treatment Time 1, EX x 2 NACCARATO,KATHERINE OT Jul 29, 2017 14:52
--- NOTE | 2017-07-29 14:54 | Individualized Plan of Care ---
Individualized Plan of Care Rehab Nursing IPOC Order Admission Date Jul 26, 2017 at 20:41 Current Orders Orders Physical Therapy [place] (07/26/17 16:09) Occupational Therapy Order (07/26/17 16:09) Speech Therapy Rehab Orders (07/26/17 16:09) Cho 60g/M 1snack (16-2000 [place]) (07/26/17 Dinner) Nursing Communication (Ord) (07/26/17 16:09) Nursing Communication (Ord) (07/26/17 16:09) Pantoprazole Tablet (Protonix Tablet) (07/26/17 21:00) Ertapenem (Non-Formulary) (Invanz (Non-F (07/27/17 09:00) Donepezil Tablet (Aricept Tablet) (07/26/17 21:00) Risperidone Tablet (Risperdal Tablet) (07/26/17 21:00) Polyethylene Glycol Powder Pkt (Miralax (07/26/17 21:00) Admission Order(Inpt,Obs,Sdc) (07/26/17 19:58) Vital Signs: Routine (Ord) 08,16,00 (07/26/17 19:58) County Manager-Inpt Rehab (07/26/17 19:58) Rehab Nursing Orders-Ipoc (07/26/17 19:58) Physical Therapy Rehab Orders (07/26/17 19:58) Occupational Therapy Rehab Ord (07/26/17 19:58) Speech Therapy Rehab Orders (07/26/17 19:58) General/Regular (07/27/17 Breakfast) Turn And Reposition Q2HR (07/26/17 19:58) Intake & Output 06,14,22 (07/26/17 19:58) Weekly Weight (Lbs) WEEK (07/26/17 19:58) Consult Physician (07/26/17 20:03) Calcium Carbonate W/Vitamin D3 (Calcarb (07/27/17 07:00) Loratadine Tablet (Claritin Tablet) (07/27/17 09:00) Insulin Nph Human (Per Unit) (Novolin N (07/26/17 21:00) Insulin (Regular) Human (Humulin R (Per (07/26/17 21:00) Tolterodine La Capsule (Detrol La Capsul (07/26/17 21:00) Therapeutic Multivitamin Tab (Vitamins, (07/27/17 07:00) Ambulate TID (07/27/17 01:13) Sequential Compression Device 08,20 (07/27/17 01:13) Dvt/Vte Risk - Notifiy Physici 08 (07/27/17 01:13) Cbc With Automated Diff (07/27/17 06:39) Comprehensive Metabolic Panel (07/27/17 06:39) Patient Visit (07/27/17 ) Speech Sound Lang Comp (07/27/17 ) Meropenem (Merrem 500 Mg) (07/28/17 06:00) Ekg Tracing (07/27/17 11:18) Patient Visit (07/27/17 ) Pt Eval Low Complexity (07/27/17 ) Gait Training, Ea 15 Min (07/27/17 ) Patient Visit (07/27/17 ) Gait Training, Ea 15 Min (07/27/17 ) Patient Visit (07/27/17 ) Exercise Therap, Ea 15 Min (07/27/17 ) Gait Training, Ea 15 Min (07/27/17 ) Cbc And Manual Diff (08/02/17 05:00) Comprehensive Metabolic Panel (08/02/17 05:00) Acetaminophen Tablet/Caplet (Tylenol T (07/27/17 20:30) Cbc And Manual Diff (07/28/17 12:02) Comprehensive Metabolic Panel (07/28/17 12:02) Patient Visit (07/28/17 ) Exercise Therap, Ea 15 Min (07/28/17 ) Gait Training, Ea 15 Min (07/28/17 ) Transfer - Bed/Room Transfer (07/28/17 14:46) Patient Visit (07/28/17 ) Therapeutic, Group (07/28/17 ) Insulin Nph Human (Per Unit) (Novolin N (07/29/17 09:00) Rehab Nursing Orders: Diseage Management, Edu in Press Rel Techn, Hydration Management, Nutrition Management, Pain Management Other Nursing Orders: Monitor hypotension and tachycardia as well as for constipation and urinary PT IPOC Problem List: Activity Tolerance, Functional Strength, Safety, Balance, Gait, Transfer Treatment Plan: Continue Plan of Care Bed Mobility, Education, Functional Activity Dina, Functional Strength, Group Therapy, Gait, Safety, Therapeutic Exercise, Transfers Treatment Duration: Aug 06, 2017 Frequency: Modified Program (IRF) Estimated Hrs Per Day: 1.5 hours per day OT IPOC Problems: Decreased Activ Tolerance, Decreased UE Strength, Dependent Transfers , Impaired I ADL's, Impaired Self-Care Skills OT Treatment, Training and Edu: Yes Plan of Care: ADL Retraining, Functional Mobility, UE Funct Exercise/Act Treatment Duration: Aug 10, 2017 Frequency: At least 5 of 7 days/Wk (IRF) Estimated Hrs Per Day: 1.[address] IPOC Speech Therapy Treatment Plan: Discontinue ST Treatment Duration: Jul 29, 2017 Frequency: Modified Program (IRF) Estimated Hrs Per Day: Other County Manager/Case Mgmt County Manager/Case Managemen: Discharge Planning, Patient/Family Counseling Physician IPOC Medical Issues being managed closely and that require the 24 hour availability of a physician: Tachycardia and hypotension ongoing Staph aureus pneumonia treatment with IV antibiotics DM Acute blood loss anemia Duoadenal ulcer as per EGD OSH s/p ablation Hypoalbuminemia \ IGC CODE 03.3 Etiologic DX Critical illness myopathy Medical Issues: DVT Prophylaxis, Infection Protection, Other (List) (as per above) Brief Synthesis of Preadmission Screen, Post-Admission Evaluation, and Therapy Evaluations:Patient who had been Indenepndent and working prior to jessie Staph aureus Pneumonia now on IV antibiotics Has Tachycardia and Hypotension at times along with general debilitation as a result of sepsis.Also duodenal ulcer with rssulting anemia of blood loss PMH HTN DM meds being adjussted and EKG being obtained today Medical Prognosis: good Anticipated Length of Stay: 07-31-17 Rehab Goals Modified Independent for adls and mobility skills with normalized Blood pressure and pulse and well controlled DM Anticipated discharge destinat: Home with spouse with [facility] COLUMBA TRIPP MD Jul 29, 2017 14:54
--- NOTE | 2017-07-29 16:15 | Physical Therapy Daily Note ---
PT Daily Note-Current Subjective Patient agrees to PT. No c/o . Pain Numeric Pain Scale: 0-No Pain Location: No Pain Reported Mental Status Patient Orientation: Normal For Age Transfers Functional [place] Measure 0=Not Assessed/NA 4=Minimal Assistance 1=Total Assistance 5=Supervision or Setup 2=Maximal Assistance 6=Modified [place] 3=Moderate Assistance 7=Complete IndependenceIRFPAI Quality Coding Scale 6 Independent with activity with or without an assistive device 5 Patient requires set up or clean up by helper. Patient completes activity by themselves 4 Supervision or touching assist (CGA). [place] provide cues , steadying assist 3 The helper provides less than half the effort to complete the activity 2 The helper provides more than half the effort to complete the activity 1 Dependent. The helper does all the effort to complete an activity 7 Patient refused to complete or attempt activity 9 The patient did not perform the activity before the current illness or injury 88 Not attempted due to Medical conditions or safety concerns Transfers (B, C, W/C) (FIM): 7 Scootin Rollin Roll Left to Right (QC): 6 Supine to/from Sit: 7 Sit to/from Stand: 7 Sit to Lying (QC): 6 Sit to Stand (QC): 6 Chair/Bwl-bs-Fntpf Xfer(QC): 6 Bed to/from Chair: 7 Car Transfer (QC): 6 Weight Bearing Right Lower Extremity: Right Full Weight Bearing Left Lower Extremity: Left Full Weight Bearing Gait Training Does the Patient Walk?: Yes Gait (FIM): 6 Distance (FIM): 3=150 ft Distance: 300' x 4;500' x 2 Walk 10 feet (QC): 6 Walk 50 ft with 2 Turns(QC): 6 Walk 150 ft (QC): 6 Walking 10ft/uneven surface-QC: 6 Gait Level of Assist: 6 Gait Assistive Device: FWW ambulation to improve pulmonary function/safe and functional gait sequence Exercises NuStep Minutes: 20 NuStep Workload: 5 (to increase pulmonary function to return to functional mobility) Assessment Current Status: Excellent Progress Patient and nursing staff have been instructed for patient to be up ad cherri in room and hallway during the day and to call for assistance in evening PRN. Both voice understanding. Patient progressing with treatment plan. PT Short Term Goals Short Term Goals Time Frame: Jul 30, 2017 Transfers (B,C,W/C) (FIM): 5 (met) Gait (FIM): 5 (mt) Distance (FIM): 3=150 ft Gait Assistive Device: Cane Single Point PT Visual C Developer Goals Visual C Developer Goals PT Visual C Developer Goals Time Frame: Aug 06, 2017 Transfers (B,C,W/C) (FIM): 7 Sit to Lying (QC): 6 Lying-Sitting on Side/Bed(QC): 6 Sit to Stand (QC): 6 Rollin Roll Left to Right (QC): 6 Chair/Eok-po-Vruyk Xfer(QC): 6 Car Transfer (QC): 6 Does the Patient Walk: Yes Gait (FIM): 6 Gait distance (FIM): 3=150 ft Walk 10 feet (QC): 6 Walk 10ft-Uneven Surface(QC): 6 Walk 50ft with 2 Turns (QC): 6 Walk 150 ft (QC): 6 Gait Assistive Device: Cane Single Point Does the Pt use WC or Scooter?: No Stairs (FIM): 6 # of Steps: 12 1 Step (curb) (QC): 6 4 Steps (QC): 6 12 Steps (QC): 6 Picking up an Object (QC): 5 PT Plan Treatment/Plan Treatment Plan: Continue Plan of Care Treatment Plan: Bed Mobility, Education, Functional Activity Dina, Functional Strength, Group Therapy, Gait, Safety, Therapeutic Exercise, Transfers Treatment Duration: Aug 06, 2017 Frequency: Modified Program (IRF) Estimated Hrs Per Day: 1.5 hours per day Patient and/or Family Agrees t: Yes Time/GCodes Time In: 1525 Time Out: 1610 Total Billed Treatment Time: 45 Total Billed Treatment 1 visit EX 20 min FA x 2 25 min MEGHANN STORY PT Jul 29, 2017 16:15
[2017-07-29 17:52] VITALS: BP 107/72
--- NOTE | 2017-07-29 18:00 | D/C HH Face to Face Order ---
D/C Face to Face Orders Instructions for Patient Patient Instructions/FollowUp: Dr. Rutledge Physician to follow Patient: Dr. Rutledge for PT, [facility] for [facility]x (RN) Discharge Diet for Home: Regular Diet Patient Data-Allergies,Ht & Wt Patient Allergies: Coded Allergies: ibuprofen (Verified Allergy, Unknown, 07/26/17) pt states "it causes extreme stomach pains" midazolam (Verified Allergy, Unknown, 07/26/17) pt states "it lowers my blood pressure extremely low" Height (Feet): 5 Height (Inches): 7.00 Weight (Pounds): 176 Weight (Ounces): 2.0 Home Health Need/Face to Face Date of Face to Face: Jul 31, 2017 Clinical Findings: Generalized weakness and fatigue, Immune-compromised, Muscle weakness, Unsteady gait I have seen Pt [id number]: Yes Discharged To: Home Diagnosis/Conditions: Sepsis Problems/Diagnosis/Condition: Patient is Homebound due to: Muscle weakness Homebound Status Due to the above stated illness, injury or surgical procedure (medical condition or diagnosis) and associated clinical findings, the patient is homebound because of his/her inability to leave home except with aid of a supportive device and/or person AND leaving the home requires a considerable and taxing effort or is medically contraindicated. Pt req the following assistanc: Walker Home Health Nursing Orders Home Health Services Order: Nursing Services, Physical Therapy-Evaluate & Treat RN to provide PICC Line dressing education, IV abx infusion education and weekly labs (CBC and BMP). IV Invanz provided and managed by [facility] Infusions Home Health Infusion Therapy Line Type: PICC Site Location: Arm-Upper Therapy Orders Therapy Orders: Physical Therapy Therapy Specific Orders: Eval assistive deivces, Teach enviro modifications/ safety, Gait training, Increase strength/endurance Certify Stmt I certify that this patient is under my care and that I, a nurse practitioner or a physician; a sales support assistant working with me, had a face to face encounter that - meets the physician face to face encounter requirements with this patient as dated. I personally scribed for COLUMBA TRIPP MD (SIN) on 07/29/17 at 14:22. Electronically submitted by Fauzia Agee ([id number]). I personally scribed for COLUMBA TRIPP MD (SIN) on 07/29/17 at 18:00. Electronically submitted by Fauzia Agee ([id number]). COLUMBA TRIPP MD Jul 29, 2017 14:22
[2017-07-29] MEDS: risperiDONE 1 MG (RisperDAL) TAB PO SCH (20:51)
[2017-07-29] MEDS: TOLTERODINE LA 4 MG (DETROL) CAP PO SCH (20:51)
[2017-07-29] MEDS: DONEPEZIL 5 MG (ARICEPT) TAB PO SCH (20:51)
[2017-07-30 03:00] VITALS: BP 112/73
[2017-07-30] MEDS: MULTIVIT W/MINERALS TAB (THERAGRAN M) PO SCH (06:06)
[2017-07-30] MEDS: inSUlin (REGULAR) HUMAN 1 UNIT/0.01 ML (CHARGE PER UNIT) SC SCH ×4 (06:06→21:31)
[2017-07-30] MEDS: CALCIUM CARB + VIT D 600 MG (CALCARB + D) TAB PO SCH (06:07)
[2017-07-30] MEDS: MEROPENEM 500 MG in NS (IVPB) 100 ML IV SCH ×4 (06:07→23:32)
--- NOTE | 2017-07-30 07:48 | Progress Note (SOAP) ---
Subjective Time Seen by Provider: 07:45 Subjective/Events-last exam Sepsis. Weakness. Patient feels that he is improving and getting stronger Objective Exam Vital Signs Date Time Temp Pulse Resp B/P (MAP) Pulse Ox O2 Delivery O2 Flow Rate FiO2 07/30/17 03:00 98.2 102 16 112/73 (86) 97 Room Air 07/29/17 21:56 Room Air 07/29/17 17:52 98.4 105 16 107/72 (84) 98 Room Air 07/29/17 09:00 Room Air I & O 07/30/17 07:00 Intake Total 1620 ml Balance 1620 ml Capillary Refill : General Appearance: No Apparent Distress, Thin HEENT: Normal ENT Inspection Neck: Normal Inspection Respiratory: Lungs Clear, No Accessory Muscle Use, No Respiratory Distress Cardiovascular: Regular Rate, Rhythm, Tachycardia Gastrointestinal: non tender, soft Results Lab Laboratory Tests 07/29/17 11:02: Glucometer 183H 07/29/17 16:06: Glucometer 174H 07/29/17 20:47: Glucometer 199H 07/30/17 04:15: Glucometer 90 Assessment/Plan Assessment/Plan Assess & Plan/Chief Complaint Debility. Sepsis. Anemia. Pneumonia due to staph aureus on IV antibiotics. . 07/28/17. Debility. Sepsis. Anemia. Pneumonia due to staph aureus on IV antibiotics meropenem. . 07/29/17. Debility. Sepsis. Anemia. Pneumonia due to staph aureus. Episode of hypoglycemia. To reduce the insulin. . 07/30/17. Debility. Sepsis. Anemia. Pneumonia. Reduced insulin yesterday and sugars better. No hypoglycemic Clinical Quality Measures DVT/VTE Risk/Contraindication: Risk Factor Score Per Nursin RFS Level Per Nursing on Admit: 2=Moderate AUDI LEIVA DO Jul 30, 2017 07:48
--- NOTE | 2017-07-30 08:18 | PM & R (SOAP) Progress Note ---
Subjective Time Seen by Provider: 07:25 Subjective/Events-last exam Patient was seen in his room this AM Has progressed well patient Modified Independent for transfers Patient still tachycrdic at times but asymptomatic.Current meds reviewed Objective Exam Last Set of Vital Signs Vital Signs Date Time Temp Pulse Resp B/P (MAP) Pulse Ox O2 Delivery O2 Flow Rate FiO2 07/30/17 03:00 98.2 102 16 112/73 (86) 97 Room Air Capillary Refill : I&O Intake and Output 07/30/17 00:00 Intake Total 1170 ml Balance 1170 ml Intake Oral 970 ml IV Total 200 ml # Voids 6 General: Alert, Oriented X3, Cooperative, No Acute Distress HEENT: Atraumatic, PERRLA Neck: Supple, No JVD Lungs: Clear to Auscultation Heart: Other (rapid rate) Abdomen: Normal Bowel Sounds, Soft, No Tenderness Extremities: No Edema Neuro: Other (Strength 4-/5) Results Lab Laboratory Tests 07/27/17 11:28: Glucometer 264H 07/27/17 16:02: Glucometer 116H 07/27/17 20:09: Glucometer 271H 07/28/17 04:37: Glucometer 69L 07/28/17 09:45: Glucometer 172H 07/28/17 12:15: White Blood Count 14.2H, Red Blood Count 2.99L, Hemoglobin 8.9L, Hematocrit 28L , Mean Corpuscular Volume 93, Mean Corpuscular Hemoglobin 30, Mean Corpuscular Hemoglobin Concent 32, Red Cell Distribution Width 14.3, Platelet Count 429H, Mean Platelet Volume 9.1, Neutrophils (%) (Auto) 64, Lymphocytes (%) (Auto) 27, Monocytes (%) (Auto) 8, Eosinophils (%) (Auto) 1, Basophils (%) (Auto) 0, Neutrophils # (Auto) 9.1H, Lymphocytes # (Auto) 3.9, Monocytes # (Auto) 1.1H, Eosinophils # (Auto) 0.1, Basophils # (Auto) 0.0, Neutrophils % (Manual) 73, Lymphocytes % (Manual) 22, Monocytes % (Manual) 4, Eosinophils % (Manual) 0, Basophils % (Manual) 0, Band Neutrophils 1, Anisocytosis SLIGHT, Stomatocytes SLIGHT, Sodium Level 136, Potassium Level 4.0, Chloride Level 104, Carbon Dioxide Level 28, Anion Gap 4L, Blood Urea Nitrogen 12, Creatinine 0.85, Estimat Glomerular Filtration Rate > 60, BUN/Creatinine Ratio 14, Glucose Level 164H, Calcium Level 8.9, Total Bilirubin 0.1, Aspartate Amino Transf (AST/SGOT) 11, Alanine Aminotransferase (ALT/SGPT) 10, Alkaline Phosphatase 60, Total Protein 6.5, Albumin 2.6L 07/28/17 12:59: Glucometer 150H 07/28/17 16:05: Glucometer 138H 07/28/17 20:36: Glucometer 238H 07/29/17 04:47: Glucometer 63L 07/29/17 05:13: Glucometer 109 07/29/17 11:02: Glucometer 183H 07/29/17 16:06: Glucometer 174H 07/29/17 20:47: Glucometer 199H 07/30/17 04:15: Glucometer 90 Assessment/Plan Assessment Critical illness myopathy due to Sepsis secondary to Pneumonia HTN now normotensive off meds Tachycardia DM Hypoalbuminemia Acute blood loss anmeia Duodenal ulcer as per EGD at OSH s/p Fulgaration Plan Continue PT/OT ST has signed off Appreciate Dr lim note Appreciate labs Monitor Blood pressure and pulse-all normalizing Team Conference held 07-28-17-See report for full functional update and POC and ELOS Discharge remains set for tomorrow Wednesday07-31-17 to home with spouse See orders F/U with PCP Jessica buenrostro and ID [facility] for Ongoing IV antibiotics provided COLUMBA TRIPP MD Jul 30, 2017 08:18
[2017-07-30] MEDS ORDERED: ACET325T49 PO (08:24)
[2017-07-30] MEDS ORDERED: TOLTA4 PO (08:24)
[2017-07-30] MEDS ORDERED: PANT40TA3 PO (08:24)
[2017-07-30] MEDS ORDERED: RISP1TAB3 PO (08:24)
--- NOTE | 2017-07-30 08:58 | Physical Therapy Daily Note ---
PT Daily Note-Current Subjective Pt. states this illness has been a long haul but he feels ready to go home. Pain Numeric Pain Scale: 0-No Pain Mental Status Patient Orientation: Normal For Age Transfers Functional [place] Measure 0=Not Assessed/NA 4=Minimal Assistance 1=Total Assistance 5=Supervision or Setup 2=Maximal Assistance 6=Modified [place] 3=Moderate Assistance 7=Complete IndependenceIRFPAI Quality Coding Scale 6 Independent with activity with or without an assistive device 5 Patient requires set up or clean up by helper. Patient completes activity by themselves 4 Supervision or touching assist (CGA). Tiger provide cues , steadying assist 3 The helper provides less than half the effort to complete the activity 2 The helper provides more than half the effort to complete the activity 1 Dependent. The helper does all the effort to complete an activity 7 Patient refused to complete or attempt activity 9 The patient did not perform the activity before the current illness or injury 88 Not attempted due to Medical conditions or safety concerns Transfers (B, C, W/C) (FIM): 7 Scootin Rollin Roll Left to Right (QC): 7 Supine to/from Sit: 7 Sit to/from Stand: 7 Sit to Lying (QC): 7 Sit to Stand (QC): 7 Chair/Tnx-pt-Hbdnk Xfer(QC): 7 Bed to/from Chair: 7 Car Transfer (QC): 7 Weight Bearing Right Lower Extremity: Right Full Weight Bearing Left Lower Extremity: Left Full Weight Bearing Gait Training Does the Patient Walk?: Yes Gait (FIM): 6 Distance (FIM): 3=150 ft (200x2) Walk 10 feet (QC): 6 Walk 50 ft with 2 Turns(QC): 6 Walk 150 ft (QC): 6 Walking 10ft/uneven surface-QC: 6 Gait Level of Assist: 6 Gait Persons Needed: 0 Gait Assistive Device: FWW till needs FWW for dist over 5-10 feet for stability as he fatigues at times...safety issue Stair Training Stair Training: Handrails/: 2 handrails Stairs (FIM): 7 #of Steps: 12 1 Step (curb) (QC): 7 4 Steps (QC): 7 12 Steps (QC): 7 Stairs: Pattern: Reciprocal Level of Assist: 7 Balance Picking up an Object (QC): 7 Exercises Supine Ex: Bridging, Ankle pumps, Quad Set, Rolling, Glut sets, Heel Slides, Short Arc Quads, Scooting, Straight leg raise, Hip abd/add Supine Reps: 15 NuStep Minutes: 8 NuStep Workload: 5 Treatments leg presses x 10 on nustep Assessment Current Status: Good Progress meets goals PT Short Term Goals Short Term Goals Time Frame: Jul 30, 2017 Transfers (B,C,W/C) (FIM): 5 (met) Gait (FIM): 5 (mt) Distance (FIM): 3=150 ft Gait Assistive Device: Cane Single Point PT Cso Goals Cso Goals PT [facility] Goals Time Frame: Aug 06, 2017 Transfers (B,C,W/C) (FIM): 7 Sit to Lying (QC): 6 Lying-Sitting on Side/Bed(QC): 6 Sit to Stand (QC): 6 Rollin Roll Left to Right (QC): 6 Chair/Zlb-bt-Xtgdp Xfer(QC): 6 Car Transfer (QC): 6 Does the Patient Walk: Yes Gait (FIM): 6 Gait distance (FIM): 3=150 ft Walk 10 feet (QC): 6 Walk 10ft-Uneven Surface(QC): 6 Walk 50ft with 2 Turns (QC): 6 Walk 150 ft (QC): 6 Gait Assistive Device: Cane Single Point Does the Pt use WC or Scooter?: No Stairs (FIM): 6 # of Steps: 12 1 Step (curb) (QC): 6 4 Steps (QC): 6 12 Steps (QC): 6 Picking up an Object (QC): 5 PT Plan Treatment/Plan Treatment Plan: Continue Plan of Care Treatment Plan: Bed Mobility, Education, Functional Activity Dina, Functional Strength, Group Therapy, Gait, Safety, Therapeutic Exercise, Transfers Treatment Duration: Aug 06, 2017 Frequency: Modified Program (IRF) Estimated Hrs Per Day: 1.5 hours per day Patient and/or Family Agrees t: Yes Safety Risks/Education Patient Education: Gait Training, Transfer Techniques, Steps, Correct Positioning, Disease Process, Safety Issues Teaching Recipient: Patient Teaching Methods: Demonstration, Discussion Response to Teaching: Verbalize Understanding, Return Demonstration, Reinforcement Needed Time/GCodes Time In: 800 Time Out: 900 Total Billed Treatment Time: 60 Total Billed Treatment 1,GT15m,FA30m,EX15m G Codes Necessary: No LUEBBER, 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
[2017-07-30] MEDS: PANTOPRAZOLE 40 MG (PROTONIX) TAB PO SCH ×2 (09:13→20:54)
[2017-07-30] MEDS: LORATADINE (CLARITIN) 10 MG TAB PO SCH (09:13)
[2017-07-30] MEDS: POLYETHYLENE GLYCOL 17 GM (MIRALAX) PACK PO SCH ×2 (09:13→20:54)
[2017-07-30] MEDS: inSUlin NPH (NovoLIN N) 1 UNIT/0.01 ML (CHARGE PER UNIT) SQ SCH ×2 (09:19→21:30)
--- NOTE | 2017-07-30 12:49 | Occupational Ther Daily Note ---
OT Current Status-Daily Note Subjective Pt seen in room, in bed, agreeable to OT. No pain mentioned. Appearance Alert, cooperative Mental Status/Objective Functional [place] Measure 0=Not Assessed/NA 4=Minimal Assistance 1=Total Assistance 5=Supervision or Setup 2=Maximal Assistance 6=Modified [place] 3=Moderate Assistance 7=Complete [place] ADL-Treatment Pt walked to and from bathroom, to and from closet, with FWW, no help, no LOB observed. After ADLs, pt required recovery period of several minutes. OT provided pt education/discussion on energy conservation techniques and gave pt written information. Pt left at EOB, eating lunch, all needs met. Functional [place] Measure 0=Not Assessed/NA 4=Minimal Assistance 1=Total Assistance 5=Supervision or Setup 2=Maximal Assistance 6=Modified [place] 3=Moderate Assistance 7=Complete IndependenceIRFPAI Quality Coding Scale 6 Independent with activity with or without an assistive device 5 Patient requires set up or clean up by helper. Patient completes activity by themselves 4 Supervision or touching assist (CGA). Banks provide cues , steadying assist 3 The helper provides less than half the effort to complete the activity 2 The helper provides more than half the effort to complete the activity 1 Dependent. The helper does all the effort to complete an activity 7 Patient refused to complete or attempt activity 9 The patient did not perform the activity before the current illness or injury 88 Not attempted due to Medical conditions or safety concerns Eating (FIM): 7 (Pt was able to open packages and feed himself with no help. No dentures) Eating (QC): 6 Grooming (FIM): 6 (Pt stood at sink to brush teeth and comb hair, FWW, no help. Washed face and hands in shower) Oral Hygiene (QC): 6 Bathing (FIM): 6 (Pt turned water on and off and retrieved towel from bar. Washed and dried all parts. transfer tub bench, hand held shower, grab bar) Shower/Bathe Self (QC): 6 Upper Body (FIM): 6 (Retrieved clean clothes from closet and put dirty ones away. Doffed and donned clothes without help, FWW at closet for balance) Upper Body Dressing (QC): 6 Lower Body Dressing (FIM): 6 (Retrieved clean clothes from closet and put dirty ones away. Doffed and donned clothes without help, including slipper socks. FWW at closet for balance) Lower Body Dressing (QC): 6 On/Off Footwear (QC): 6 Toileting (FIM): 6 (Pt has been toileting himself, up ad cherri in room. Able to manage clothing and hygiene. Tall toilet, grab bar, FWW) Toileting Hygiene (QC): 6 Toilet/Commode Transfer (FIM): 6 (Pt has been toileting himslef, up ad cherri inroom. Uses grab bar to get on/off tall toilet, FWW) Toilet Transfer (QC): 6 Tub Transfer(FIM): 6 (On/off transfer tub bench and getting in/out of tub. Grab bars, FWW) Pt reported that he has a tub at home and hi has a shower chair. Education OT Patient Education: Energy conservation, Progress toward Goal/Update tx plan , Purpose of tx/functional activities, Safety issues Teaching Recipient: Patient Teaching Methods: Discussion Response to Teaching: Verbalize Understanding, Return Demonstration OT Short Term Goals Short Term Goals Time Frame: Aug 03, 2017 Eating(FIM): 6 Grooming(FIM): 5 Bathing(FIM): 5 Upper Body Dressing(FIM): 5 Lower Body Dressing(FIM): 5 Toileting(FIM): 5 Transfers (B,C,W/C) (FIM): 5 (met) Toilet/Commode Transfer(FIM): 5 Shower Transfer(FIM): 5 Additional Short Term Goals: 1-Demonstrate ADL Tasks, 2-Verbalize Understanding , 3-ImproveStrength/Dina 1=Demonstrate adherence to instructed precautions during ADL tasks. 2=Patient will verbalize/demonstrate understanding of assistive devices/ modifications for ADL. 3=Patient will improve strength/tolerance for activity to enable patient to perform ADL's. OT Bark Tanner Goals Bark Tanner Goals Time Frame: Aug 10, 2017 Eating (FIM): 6 (met 4-6-18) Eating (QC): 6 (met 4-6-18) Groomin (met 4-6-18) Oral Hygiene (QC): 6 (met 4-6-18) Bathing(FIM): 5 (met 4-6-18) Shower/Bathe Self (QC): 4 (met 4-6-18) Upper Body Dressing(FIM): 6 (met 4--18) Upper Body Dressing (QC): 6 (met 4--18) Lower Body Dressing(FIM): 6 (met 4--18) Lower Body Dressing (QC): 6 (met --18) On/Off Footwear (QC): 6 (met --18) Toileting(FIM): 6 (met --18) Toileting Hygiene (QC): 6 (met --18) Transfers (B,C,W/C) (FIM): 6 Toilet/Commode Transfer(FIM): 6 (met --18) Toilet/Commode Transfer (QC): 6 (met --18) Shower Transfer(FIM): 5 (met -18 met for tub transfer) Additional Goals: 1-Demonstrate ADL Tasks, 2-Verbalize Understanding, 3- ImproveStrength/Dina 1=Demonstrate adherence to instructed precautions during ADL tasks. 2=Patient will verbalize/demonstrate understanding of assistive devices/ modifications for ADL. 3=Patient will improve strength/tolerance for activity to enable patient to perform ADL's. OT Education/Plan Discharge Recommendations Plan/Recommendations: Continue POC (anticipate DC 07-31-17) Treatment Plan/Plan of Care Patient would benefit from OT for education, treatment and training to promote independence in ADL's, mobility, safety and/or upper extremity function for ADL' s. Plan of Care: ADL Retraining, Functional Mobility, UE Funct Exercise/Act Treatment Duration: Aug 10, 2017 Frequency: At least 5 of 7 days/Wk (IRF) Estimated Hrs Per Day: 1.5 hours per day Agreement: Yes Rehab Potential: Good Time/GCodes Start Time: 11:00 Stop Time: 12:00 Total Time Billed (hr/min): 60 Billed Treatment Time visit, 60 minutes ADL TANK HEARD OT Jul 30, 2017 12:49
--- NOTE | 2017-07-30 15:05 | Therapy Group Daily Note ---
Therapy Daily Group Note Patient Education Topic Energy Cons Exercises LE Seated Exercise, UE Exercise Other/Notes Pt. participated in group PT OT session this date. Pt. came went indep with FWW. Pt. introduced himself and was very social. Pt. contributed to discussion regarding energy conservation and work simplification. Pt. also participated in seated therex. Pts each shared a single word of encouragement with each other before parting. Pt. to room after with sy at hand. Start Time: 13:00 Stop Time: 14:15 Total Billed Treatment Time: 75 Total Billed Treatment 1,GRP NEPTALI ZIMMERMAN SPREADER BOX OPERATOR Jul 30, 2017 15:05
[2017-07-30 17:50] VITALS: BP 104/71
[2017-07-30] MEDS: TOLTERODINE LA 4 MG (DETROL) CAP PO SCH (20:54)
[2017-07-30] MEDS: risperiDONE 1 MG (RisperDAL) TAB PO SCH (20:54)
[2017-07-30] MEDS: DONEPEZIL 5 MG (ARICEPT) TAB PO SCH (20:54)
[2017-07-31 05:53] VITALS: BP 109/72
[2017-07-31] MEDS: MEROPENEM 500 MG in NS (IVPB) 100 ML IV SCH ×2 (05:59→11:33)
[2017-07-31] MEDS: inSUlin (REGULAR) HUMAN 1 UNIT/0.01 ML (CHARGE PER UNIT) SC SCH ×2 (05:59→10:48)
[2017-07-31] MEDS: CALCIUM CARB + VIT D 600 MG (CALCARB + D) TAB PO SCH (06:00)
[2017-07-31] MEDS: MULTIVIT W/MINERALS TAB (THERAGRAN M) PO SCH (06:00)
[2017-07-31] MEDS: PANTOPRAZOLE 40 MG (PROTONIX) TAB PO SCH (08:19)
[2017-07-31] MEDS: LORATADINE (CLARITIN) 10 MG TAB PO SCH (08:19)
[2017-07-31] MEDS: POLYETHYLENE GLYCOL 17 GM (MIRALAX) PACK PO SCH (08:20)
[2017-07-31] MEDS: inSUlin NPH (NovoLIN N) 1 UNIT/0.01 ML (CHARGE PER UNIT) SQ SCH (08:40)
[2017-07-31 10:46] VITALS: BP 105/65
[2017-07-31 13:16] VITALS: BP 105/65
--- NOTE | 2017-08-02 13:26 | Therapy Team Discharge Summary ---
Therapy Discharge Summary Discharge Recommendations Date of Discharge Jul 31, 2017 at 13:15 Therapy D/C Recommendations: Home w/ Family Support Occupational Therapy Pt was seen for skilled OT to increase his independence in basic self care to allow him to safely return home after illness. On admission he needed CGA for standing components of bathing and dressing as well as transfers. By discharge he was independent with eating and modified independent with all other basic ADLs including bathing, dressing, grooming and toileting. He used FWW, transfer tub bench, tall toilet, grab bars. Pt will have home health PT but continued OT is not recommended. See tx plan for goals met. DC OT. Decreased Activ Tolerance, Impaired I ADL's, Impaired Self-Care Skills PT Rubber Tile Floor Layer Goals Rubber Tile Floor Layer Goals PT Rubber Tile Floor Layer Goals Time Frame: Aug 06, 2017 Transfers (B,C,W/C) (FIM): 7 Roll Left to Right (QC): 6 Sit to Lying (QC): 6 Lying-Sitting on Side/Bed(QC): 6 Sit to Stand (QC): 6 Chair/Edl-qp-Ujeip Xfer(QC): 6 Car Transfer (QC): 6 Does the Patient Walk: Yes Gait (FIM): 6 Gait distance (FIM): 3=150 ft Walk 10 feet (QC): 6 Walk 10ft-Uneven Surface(QC): 6 Walk 50ft with 2 Turns (QC): 6 Walk 150 ft (QC): 6 Gait Assistive Device: Cane Single Point Does the Pt use WC or Scooter?: No Stairs (FIM): 6 # of Steps: 12 1 Step (curb) (QC): 6 4 Steps (QC): 6 12 Steps (QC): 6 Picking up an Object (QC): 5 OT Care Home Goals Rubber Tile Floor Layer Goals Time Frame: Aug 10, 2017 Eating (FIM): 6 (met 4-6-18) Eating (QC): 6 (met 4-6-18) Oral Hygiene (QC): 6 (met 4-6-18) Grooming(FIM): 6 (met 4-6-18) Bathing(FIM): 5 (met 4-6-18) Shower/Bathe Self (QC): 4 (met 4-6-18) Upper Body Dressing(FIM): 6 (met 4-6-18) Upper Body Dressing (QC): 6 (met 4-6-18) Lower Body Dressing(FIM): 6 (met 4-6-18) Lower Body Dressing (QC): 6 (met 4-6-18) On/Off Footwear (QC): 6 (met 4-6-18) Toileting(FIM): 6 (met 4--18) Toileting Hygiene (QC): 6 (met 4--18) Transfers (B,C,W/C) (FIM): 6 Toilet/Commode Transfer(FIM): 6 (met 4--18) Toilet/Commode Transfer (QC): 6 (met 4-6-18) Shower Transfer(FIM): 5 (met 18 met for tub transfer) Additional Goals: 1-Demonstrate ADL Tasks, 2-Verbalize Understanding, 3- ImproveStrength/Dina 1=Demonstrate adherence to instructed precautions during ADL tasks. 2=Patient will verbalize/demonstrate understanding of assistive devices/ modifications for ADL. 3=Patient will improve strength/tolerance for activity to enable patient to perform ADL's. TANK HEARD OT Aug 02, 2017 13:26
--- NOTE | 2017-08-02 14:56 | Therapy Team Discharge Summary ---
Therapy Discharge Summary Discharge Recommendations Date of Discharge Jul 31, 2017 at 13:15 Therapy D/C Recommendations: Home w/ Family Support Occupational Therapy Pt. has been seen by occupational therapy to increase overall strength and endurance. Pt. has met all goals. Pt. is discharging home with spouse. All needs have been met at this facility. Decreased Activ Tolerance, Impaired I ADL's, Impaired Self-Care Skills PT [employer] Goals Fdc Goals PT [employer] Goals Time Frame: Aug 06, 2017 Transfers (B,C,W/C) (FIM): 7 Roll Left to Right (QC): 6 Sit to Lying (QC): 6 Lying-Sitting on Side/Bed(QC): 6 Sit to Stand (QC): 6 Chair/Azd-cc-Dwsyp Xfer(QC): 6 Car Transfer (QC): 6 Does the Patient Walk: Yes Gait (FIM): 6 Gait distance (FIM): 3=150 ft Walk 10 feet (QC): 6 Walk 10ft-Uneven Surface(QC): 6 Walk 50ft with 2 Turns (QC): 6 Walk 150 ft (QC): 6 Gait Assistive Device: Cane Single Point Does the Pt use WC or Scooter?: No Stairs (FIM): 6 # of Steps: 12 1 Step (curb) (QC): 6 4 Steps (QC): 6 12 Steps (QC): 6 Picking up an Object (QC): 5 OT [employer] Goals Fdc Goals Time Frame: Aug 10, 2017 Eating (FIM): 6 (met 4-6-18) Eating (QC): 6 (met 4-6-18) Oral Hygiene (QC): 6 (met 4-6-18) Grooming(FIM): 6 (met 4-6-18) Bathing(FIM): 5 (met 4-6-18) Shower/Bathe Self (QC): 4 (met 4-6-18) Upper Body Dressing(FIM): 6 (met 4-6-18) Upper Body Dressing (QC): 6 (met 4-6-18) Lower Body Dressing(FIM): 6 (met 4-6-18) Lower Body Dressing (QC): 6 (met 4-6-18) On/Off Footwear (QC): 6 (met 4-6-18) Toileting(FIM): 6 (met 4-6-18) Toileting Hygiene (QC): 6 (met 4--18) Transfers (B,C,W/C) (FIM): 6 Toilet/Commode Transfer(FIM): 6 (met 4--18) Toilet/Commode Transfer (QC): 6 (met 4--18) Shower Transfer(FIM): 5 (met -18 met for tub transfer) Additional Goals: 1-Demonstrate ADL Tasks, 2-Verbalize Understanding, 3- ImproveStrength/Dina 1=Demonstrate adherence to instructed precautions during ADL tasks. 2=Patient will verbalize/demonstrate understanding of assistive devices/ modifications for ADL. 3=Patient will improve strength/tolerance for activity to enable patient to perform ADL's. KATHERINE FARAH OT Aug 02, 2017 14:56
== END 2017-07-31 13:15 | disposition home health service (06) | DRG 91 ==
PROVIDERS: ADMIT Physical Medicine & Rehabilitation; ATTEND Physical Medicine & Rehabilitation
DX: G72.81 Critical illness myopathy (principal); A41.9 Sepsis, unspecified organism; J15.211 Pneumonia due to Methicillin susceptible Staphylococcus aureus; K26.9 Duodenal ulcer, unspecified as acute or chronic, without hemorrhage or perforation; D62 Acute posthemorrhagic anemia; E11.649 Type 2 diabetes mellitus with hypoglycemia without coma; E46 Unspecified protein-calorie malnutrition; J44.9 Chronic obstructive pulmonary disease, unspecified; F03.90 Unspecified dementia, unspecified severity, without behavioral disturbance, psychotic disturbance, mood disturbance, and anxiety; E88.09 Other disorders of plasma-protein metabolism, not elsewhere classified; I10 Essential (primary) hypertension; R00.0 Tachycardia, unspecified; I95.9 Hypotension, unspecified; Z87.891 Personal history of nicotine dependence
CPT/HCPCS: 36415; 80053; 82962; 85007; 85025; 85027; 93005

== ENCOUNTER → 2019-02-15 | Outpatient (CLI) | payer BC ==
[~2019-02-15] MED LIST changes: +ACET325T49 PO; +ERTA1VIA3 IV; +GUAI600T86 PO; +METF-397 PO; -METF500T4 PO; +OCUVITE SOFTGE1 EACH PO; +PANT40TA3 PO; +POTA99TA17 PO; +PSEU30TA37 PO; +RISP1TAB3 PO; +TOLTA4 PO; -VIT1CAPS9 PO
[2019-02-15 13:06] LABS: ALANINE AMINOTRANSFERASE 19 U/L (0-55); ALKALINE PHOSPHATASE 59 U/L (40-136); BILIRUBIN,TOTAL 0.2 MG/DL (0.1-1.0); BUN/CREATININE RATIO 22; CALCIUM 9.7 MG/DL (8.5-10.1); CARBON DIOXIDE 26 MMOL/L (21-32); CHLORIDE 100 MMOL/L (98-107); CREATININE SERUM 0.79 MG/DL (0.60-1.30); GFR ESTIMATED > 60; GLUCOSE 174 MG/DL (70-105); POTASSIUM 4.4 MMOL/L (3.6-5.0); SODIUM 137 MMOL/L (135-145); TOTAL PROTEIN 7.7 GM/DL (6.4-8.2)
[2019-02-15 13:07] LABS: ALBUMIN 4.2 GM/DL (3.2-4.5)
== END ==
LOC: LAB FS 11:48
PROVIDERS: ATTEND Pediatrics
DX: E11.9 Type 2 diabetes mellitus without complications (principal)
CPT/HCPCS: 36415; 80053; 83036